=== PATIENT | female | born 1950 | race Caucasian/White ===

== ENCOUNTER 2020-01-22 08:06 | Observation (INO) | payer MEDICARE, OTHER ==
[~2020-01-22] VITALS: Ht 162.6 cm; Wt 86.8 kg
[2020-01-22] MEDS ORDERED: LACTATED RINGERS 1,000 ML IV ONE (08:31)
[2020-01-22 08:43] LABS: BASOPHILS # (AUTO) 0.1 10^3/uL (0.0-0.1); BASOPHILS % (AUTO) 1 % (0-10); EOSINOPHILS # (AUTO) 0.3 10^3/uL (0.0-0.3); EOSINOPHILS % (AUTO) 4 % (0-10); HEMATOCRIT 42 % (35-52); HEMOGLOBIN 13.4 G/DL (11.5-16.0); LYMPHOCYTES # (AUTO) 1.9 X 10^3 (1.0-4.0); LYMPHOCYTES % (AUTO) 26 % (12-44); MEAN CORPUSCULAR HEMOGLOBIN 29 PG (25-34); MEAN CORPUSCULAR HGB CONC 32 G/DL (32-36); MEAN CORPUSCULAR VOLUME 89 FL (80-99); MEAN PLATELET VOLUME 9.1 FL (7.4-10.4); MONOCYTES # (AUTO) 0.6 X 10^3 (0.0-1.0); MONOCYTES % (AUTO) 8 % (0-12); NEUTROPHILS # (AUTO) 4.5 X 10^3 (1.8-7.8); NEUTROPHILS % (AUTO) 61 % (42-75); PLATELET COUNT 371 10^3/uL (130-400); WHITE BLOOD COUNT 7.3 10^3/uL (4.3-11.0)
--- NOTE | 2020-01-22 08:45 | ED Neurological Problem ---
General Chief Complaint: Neuro-Stroke Like Symptoms Stated Complaint: LEFT SIDE NUMBNESS;WEAKNESS Source: patient, family Exam Limitations: no limitations History of Present Illness Date Seen by Provider: Jan 22, 2020 Time Seen by Provider: 08:14 Initial Comments Here with family with concerns of stroke due to left-sided weakness. She reports that she was on a cruise this week and at the end of the cruise (Saturday night) 2 days ago, the boat was rocking quite a bit and she got dizzy. She took some Antivert and woke up the next morning with continued dizziness but then started feeling some left-sided weakness. She completed the cruise and actually was able to get on the flight back home but was having increasing left-sided weakness. Today, she reports difficulty with ambulating without assistance due to left leg weakness and also feels like her speech is slowed. She states that she is thinking okay. She complains of numbness or tingling to the arm and leg on the left. Admits to some facial droop on the left. Does not have significant medical history but has not sought medical care either. States her blood pressure is usually normal when it is checked and it is high today. She arrives with her daughter who reports that the patient is having difficulty walking due to left-sided weakness/discoordination. Patient denies headache, nausea, vomi ting, chest pain or other symptoms. The cruise was out of country from [facility] to [place] and back. This was a five-day cruise. She states that she ate quite a bit during the cruise and has had some loose stools from that but otherwise denies other symptoms. Timing/Duration: 24 hours (up to 36 hours), increasing Severity: mild, moderate Associated Symptoms: No confusion, No fever/chills, No loss of consciousness, No muscle spasms, No nausea/vomiting; paresthesia, slurred speech, trouble walking, weakness Allergies and Home Medications Allergies Coded Allergies: Sulfa (Sulfonamide Antibiotics) (Verified Allergy, Unknown, 01/22/20) Home Medications Aspirin 325 Mg Tablet.dr, 325 MG PO DAILY Prescribed by: LUIS MCCALL on 01/22/201823 Atorvastatin Calcium 20 Mg Tablet, 20 MG PO DAILY Prescribed by: LUIS MCCALL on 01/22/201823 Metoprolol Succinate 50 Mg Tab.er.24h, 50 MG PO DAILY Prescribed by: LUIS MCCALL on 01/22/201823 Rabeprazole Sodium 20 Mg Tablet.dr, 20 MG PO DAILY, (Reported) Patient Home Medication List Home Medication List Reviewed: Yes (Antivert, aspirin and Zyrtec D) Review of Systems Review of Systems Constitutional: see HPI; No chills, No fever Eyes: Denies Blurred Vision, Denies Pain; Glasses Ears, Nose, Mouth, Throat: denies ear pain, denies throat pain Respiratory: No cough, No short of breath Cardiovascular: No chest pain, No edema, No palpitations Gastrointestinal: No abdominal pain, No nausea, No vomiting Genitourinary: no symptoms reported Musculoskeletal: see HPI; No muscle pain; muscle weakness Skin: no symptoms reported Psychiatric/Neurological: See HPI Endocrine: No Symptoms Reported All Other Systems Reviewed Negative Unless Noted: Yes Past Ufjhqty-Tyqkzn-Grzmeo Hx Past Med/Social Hx: Reviewed Nursing Past Med/Soc Hx Patient Social History Alcohol Use: Denies Use Recreational Drug Use: No Smoking Status: Never a Smoker Recent Foreign Travel: Yes Contact w/Someone Who Travel: No Seasonal Allergies Seasonal Allergies: Yes Past Medical History Surgeries: No Respiratory: No Cardiac: No Neurological: No : No Gastrointestinal: No Musculoskeletal: No Endocrine: No HEENT: No Family Medical History Reviewed Nursing Family Hx Heart Disease, Lung Disease, Stroke Physical Exam Vital Signs Vital Signs - First Documented 01/22/20 08:23 Temp 35.3 Pulse 82 Resp 29 B/P (MAP) 176/93 (120) Pulse Ox 97 Capillary Refill : Height, Weight, BMI Height: '" Weight: lbs. oz. kg; BMI Method: General Appearance: WD/WN, no apparent distress HEENT: PERRL/EOMI, pharynx normal Neck: full range of motion, supple Respiratory: lungs clear, normal breath sounds Cardiovascular: regular rate, rhythm, no murmur Peripheral Pulses: 2+ Dorsalis Pedis (R), 2+ Left Dors-Pedis (L), 2+ Radial Pulses (R), 2+ Radial Pulses (L) Gastrointestinal: non tender, soft Back: normal inspection, no CVA tenderness, no vertebral tenderness Extremities: non-tender, no pedal edema, no calf tenderness Neurologic/Psychiatric: alert, oriented x 3 Crainal Nerves: PERRL, abnormal speech (slightly slurred or thick tongue speech), facial asymmetry (mild left facial droop) Coordination/Gait: ABN nose to finger (L) (slowed) Motor/Sensory: no pronator drift, sensory deficit (slightly decreased left upper extremity) Skin: normal color, warm/dry Stroke Onset of Symptoms Date of Onset of Symptoms: Jan 20, 2020 Time of Symptom Onset: 22:00 Onset of Symptoms: No NIH Stroke Scale Assessment Select: Initial Level of Consciousness: 0=Alert (0), Level of Consciousness- Questions: 0=Answers both month/age (0), LOC Commands: 0=Performs both tasks (0), Gaze: Normal (0), Visual [place]: 0=No visual loss (0), Facial Movement (Facial Paresis): 1=Minor paralysis (1), Motor Function-Arms Right: 0=No drift (0), Motor Function-Arms Left: 0=No drift (0), Motor Function-Legs Right: 0=No drift (0), Motor Function-Legs Left: 0=No drift (0), Limb Ataxia: 2=Present in two limbs (2), Sensory: 1=Mild to Moderate loss (1), Best Language: 0=No aphasia (0), Dysarthria: 1=Mild to moderate loss (1), Extinction & Inattention: 0=No abnormality (0), Total: 5 Stroke Thrombolytic Exclusion Age 18 or Over: Yes Acute intenal hemorrhage: No History of CVA: No Uncontrolled Coagulation Defec: No Intracranial Hemorrhage: No Severe Hypertension: No GI or Bleed: No Subarachnoid Hemorrhage: No Intracranial Neoplasm/Aneurysm: No Oral Anticoagulants: No Surgery or Trauma: No Puncture of Non-Compressible V: No Recent CPR: No Diabetic Hemorrhagic Retinopat: No Organ Biopsy: No Recent Obstetric Delivery: No Glucose: No Significant Hepatic Dysfunctio: No NIH Stoke Scale >22: No Bacterial Endocarditis: No Pericarditis: No Improving Symptoms: No Platelets: No TPA Contraindication: Yes (onset 24 hours ago) Progress/Results/Core Measures Results/Orders Lab Results Laboratory Tests Test 01/22/20 08:37 01/22/20 09:06 Range/Units White Blood Count 7.3 4.3-11.0 10^3/uL Red Blood Count 4.71 4.35-5.85 10^6/uL Hemoglobin 13.4 11.5-16.0 G/DL Hematocrit 42 35-52 % Mean Corpuscular Volume 89 80-99 FL Mean Corpuscular Hemoglobin 29 25-34 PG Mean Corpuscular Hemoglobin Concent 32 32-36 G/DL Red Cell Distribution Width 14.0 10.0-14.5 % Platelet Count 371 130-400 10^3/uL Mean Platelet Volume 9.1 7.4-10.4 FL Neutrophils (%) (Auto) 61 42-75 % Lymphocytes (%) (Auto) 26 12-44 % Monocytes (%) (Auto) 8 0-12 % Eosinophils (%) (Auto) 4 0-10 % Basophils (%) (Auto) 1 0-10 % Neutrophils # (Auto) 4.5 1.8-7.8 X 10^3 Lymphocytes # (Auto) 1.9 1.0-4.0 X 10^3 Monocytes # (Auto) 0.6 0.0-1.0 X 10^3 Eosinophils # (Auto) 0.3 0.0-0.3 10^3/uL Basophils # (Auto) 0.1 0.0-0.1 10^3/uL Prothrombin Time 14.2 12.2-14.7 SEC INR Comment 1.1 0.8-1.4 Activated Partial Thromboplast Time 29 24-35 SEC D-Dimer < 0.27 0.00-0.49 UG/ML Sodium Level 140 135-145 MMOL/L Potassium Level 3.8 3.6-5.0 MMOL/L Chloride Level 105 98-107 MMOL/L Carbon Dioxide Level 26 21-32 MMOL/L Anion Gap 9 5-14 MMOL/L Blood Urea Nitrogen 16 7-18 MG/DL Creatinine 0.82 0.60-1.30 MG/DL Estimat Glomerular Filtration Rate > 60 BUN/Creatinine Ratio 20 Glucose Level 132 H 70-105 MG/DL Calcium Level 8.8 8.5-10.1 MG/DL Corrected Calcium 9.0 8.5-10.1 MG/DL Total Bilirubin 0.4 0.1-1.0 MG/DL Aspartate Amino Transf (AST/SGOT) 23 5-34 U/L Alanine Aminotransferase (ALT/SGPT) 24 0-55 U/L Alkaline Phosphatase 116 40-136 U/L Troponin I 0.046 H <0.028 NG/ML Total Protein 6.8 6.4-8.2 GM/DL Albumin 3.8 3.2-4.5 GM/DL Urine Color YELLOW Urine Clarity CLEAR Urine pH 6.5 5-9 Urine Specific [place] 1.010 L 1.016-1.022 Urine Protein NEGATIVE NEGATIVE Urine Glucose (UA) NEGATIVE NEGATIVE Urine Ketones NEGATIVE NEGATIVE Urine Nitrite NEGATIVE NEGATIVE Urine Bilirubin NEGATIVE NEGATIVE Urine Urobilinogen 0.2 < = 1.0 MG/DL Urine Leukocyte Esterase 1+ H NEGATIVE Urine RBC (Auto) NEGATIVE NEGATIVE Urine RBC NONE /HPF Urine WBC 0-2 /HPF Urine Squamous Epithelial Cells NONE /HPF Urine Crystals NONE /LPF Urine Bacteria NEGATIVE /HPF Urine Casts NONE /LPF Urine Mucus NEGATIVE /LPF Urine Culture Indicated NO My Orders Orders - VENICE MORFIN MD Cbc With Automated Diff (01/22/20 08:16) Protime With Inr (01/22/20 08:16) Partial Thromboplastin Time (01/22/20 08:16) Comprehensive Metabolic Panel (01/22/20 08:16) Fibrin Degradation Products (01/22/20 08:16) Troponin I (01/22/20 08:16) Ua Culture If Indicated (01/22/20 08:16) Chest 1 View, Ap/Pa Only (01/22/20 08:16) Ekg Tracing (01/22/20 08:16) Nothing By Mouth (01/22/20 Lunch) Ed Iv/Invasive Line Start (01/22/20 08:16) Ct Head Wo-R/O Stroke (01/22/20 08:16) Intake & Output 06,14,22 (01/22/20 08:16) Monitor-Rhythm Ecg Trace Only (01/22/20 08:16) Dysphagia Screening Tool (01/22/20 08:16) Lactated Ringers (Lr 1000 Ml Iv Solution (01/22/20 08:31) Ct Angio Head/Neck (01/22/20 09:17) Iohexol Injection (Omnipaque 350 Mg/Ml 1 (01/22/20 09:30) Received Contrast (Hold Metformin- Contr (01/22/20 09:30) Sodium Chloride Flush (Catheter Flush Sy (01/22/20 09:30) Ns (Ivpb) (Sodium Chloride 0.9% Ivpb Bag (01/22/20 09:30) Metoprolol Succinate (Xl) Tab (Toprol Xl (01/22/20 10:15) Medications Given in ED Vital Signs/I&O 01/22/20 08:23 Temp 35.3 Pulse 82 Resp 29 B/P (MAP) 176/93 (120) Pulse Ox 97 Progress Progress Note : Progress Note Seen and evaluated. IV, labs, EKG, chest x-ray, CT head, UA and LR 1 L bolus or dered. Stroke scale is 5. Patient is well outside of TPA window as symptoms started 24-36 hours ago. She did take an aspirin at home. Anticipate CT angiogram of the head and neck. Blood pressure is elevated at this point but we will allow that to be currently pending CT head and rule out bleed. Monitor patient. 25: CT angiogram head and neck ordered. Initial CT results reviewed. I did discuss with the radiologist. We will get CT angiogram now and anticipate or we'll try to get MRI later today. Monitor patient. 1000: I did discuss the case with Dr. Mccall and she accepts patient for admission with request for Dr. Barriga on consult. Toprol-XL 50 mg by mouth given to decrease blood pressure some without going to far given that this may be hypertensive event. 1020: I did discuss the case with Dr. Barriga and he accepts patient in consult. Agrees with Toprol and will continue to monitor blood pressure. Troponin slightly elevation may only be related to blood pressure concerns and he will continue to manage on that. Initially placed observation status as patient will not want to stay longer than she has to. We will try for MRI today if possible. 2-D echocardiogram ordered. All findings concerns discussed with patient and family who agree with plan. Initial ECG Impression Date: Jan 22, 2020 Initial ECG Impression Time: 08:16 Initial ECG Rate: 79 Initial ECG Rhythm: Normal Sinus Initial ECG Intervals: Normal Initial ECG Impression: Normal Initial ECG Comparisson: No Previous ECG Available Comment Sinus rhythm with borderline prolonged QT interval. No evidence of ST elevation RI. No previous available for comparison. Interpreted by me. Diagnostic Imaging Diagonstic Imaging: CT Plain Films/CT/US/NM/MRI: head Comments NAME: ARIANNAMARICRUZ [facility] REC#: [id number] PT STATUS: REG ER : 1950 PHYSICIAN: VENICE MORFIN MD ADMIT DATE: 01/22/20/ER Draft Date of Exam:01/22/20 CT HEAD WO-R/O STROKE PROCEDURE: CT head wo r/o stroke. TECHNIQUE: Multiple contiguous axial images were obtained through the brain without the use of intravenous contrast. Auto Exposure Controls were utilized during the CT exam to meet ALARA standards for radiation dose reduction. INDICATION: Dizziness and left-sided weakness. COMPARISON: Correlation is made with a prior head CT from 06/11/2013. FINDINGS: The ventricular size and sulcal pattern are normal. There is some mild periventricular white matter changes, likely owing to chronic microvascular ischemia. There appears to be some white matter changes in the moser radiata bilaterally. A small CSF density noted in the right centrum semiovale is noted which may represent an old lacunar infarct. This was not present on the exam from 2012. There is no midline shift. No acute intra-axial or extra-axial hemorrhage is detected. Cisterns are patent. Visualized paranasal sinuses are clear. IMPRESSION: Chronic changes, as described. No acute intracranial process is detected. If symptoms persist, MRI of the brain may be useful for further evaluation. Dictated on workstation # [id number] Dict: 01/22/20900 Trans: 01/22/20905 [facility] [id number] Interpreted by: FREIDA GHOSH MD Electronically signed by: Sandy Imaging: Xray Plain Films/CT/US/NM/MRI: chest Comments NAME: MARICRUZ KELLER [facility] REC#: [id number] PT STATUS: REG ER : 1950 PHYSICIAN: VENICE MORFIN MD ADMIT DATE: 01/22/20/ER Draft Date of Exam:01/22/20 CHEST 1 VIEW, AP/PA ONLY INDICATION: Left-sided numbness and weakness. FINDINGS: The lungs are clear. The heart and vessels are normal. No failure, effusion or pneumothorax. IMPRESSION: No acute appearing abnormality. Dictated on workstation # [id number] Dict: 01/22/20857 Trans: 01/22/20899 [facility] [id number] Interpreted by: KELSIE OSPINA Electronically signed by: [place]loe Imaging: CT Plain Films/CT/US/NM/MRI: other Comments NAME: MARICRUZ KELLER [facility] REC#: [id number] PT STATUS: REG ER : 1950 PHYSICIAN: VENICE MORFIN MD ADMIT DATE: 01/22/20/ER Draft Date of Exam:01/22/20 CT ANGIO HEAD/NECK PROCEDURE: CT angiography of the head and CT angiography of the neck with and without contrast. TECHNIQUE: Contiguous noncontrast images were obtained from the skull base through the vertex. After intravenous contrast administration, helical CT angiography of the neck was performed. Source data was reformatted into 3D MIP projections. Delayed post contrast acquisition was also obtained. Auto Exposure Controls were utilized during the CT exam to meet ALARA standards for radiation dose reduction. INDICATION: Left-sided weakness. FINDINGS: CT angiographic portion of the study shows a three-vessel branching pattern to the aortic arch. Both common carotid arteries appear to be patent. The carotid bifurcations are unremarkable. Both internal carotid arteries are patent. There is some calcified plaque in the carotid siphons bilaterally. Bilateral middle cerebral arteries appear to be widely patent. No large branch occlusion or thromboembolism is identified. Bilateral anterior cerebral arteries appear to be patent. The basilar artery is patent. Bilateral posterior cerebral arteries are patent. IMPRESSION: Unremarkable CT angiogram of the head and neck without evidence of large branch occlusion or thromboembolism. There is plaquing in the carotid siphons bilaterally but no high-grade stenosis is identified. Dictated on workstation # [id number] Dict: 01/22/20 0946 Trans: 01/22/20 0958 [facility] [phone] Interpreted by: FREIDA GHOSH MD Electronically signed by: Departure Communication (Admissions) Time/Spoke to Admitting Phy: 10:00 Time/Spoke to Consulting Phy: 10:20 Impression Primary Impression: Cerebrovascular accident (CVA) with involvement of left side of body Additional Impressions: Uncontrolled hypertension Elevated troponin Disposition: ADMITTED INPATIENT Condition: Stable Admissions Decision to Admit Reason: Admit from ER (General) Decision to Admit/Date: Jan 22, 2020 Time/Decision to Admit Time: 10:00 Departure-Patient Inst. Referrals: LUIS MCCALL DO (PCP/Family) Primary Care Physician Scripts Atorvastatin Calcium (Atorvastatin Calcium) 20 Mg Tablet 20 MG PO DAILY, #30 TAB 0 Refills Prov: LUIS MCCALL DO 01/22/20 Metoprolol Succinate (Toprol Xl) 50 Mg Tab.er.24h 50 MG PO DAILY, #30 TAB 3 Refills Prov: LUIS MCCALL DO 01/22/20 Aspirin (Aspirin EC) 325 Mg Tablet.dr 325 MG PO DAILY, #90 TAB 0 Refills Prov: LUIS MCCALL DO 01/22/20 VENICE MORFIN MD Jan 22, 2020 08:45
[2020-01-22] MEDS ORDERED: NF-ACI30T PO (08:57)
[2020-01-22] MEDS ORDERED: CETI1TAB61 PO (08:57)
[2020-01-22] MEDS ORDERED: ASPI-586 PO (08:58)
--- NOTE | 2020-01-22 09:00 | Diagnostic Imaging Report ---
INDICATION: Left-sided numbness and weakness. FINDINGS: The lungs are clear. The heart and vessels are normal. No failure, effusion or pneumothorax. IMPRESSION: No acute appearing abnormality. Dictated by: Dictated on workstation # [id number]
[2020-01-22 09:07] LABS: ALANINE AMINOTRANSFERASE 24 U/L (0-55); ALBUMIN 3.8 GM/DL (3.2-4.5); ALKALINE PHOSPHATASE 116 U/L (40-136); BILIRUBIN,TOTAL 0.4 MG/DL (0.1-1.0); BUN/CREATININE RATIO 20; CALCIUM 8.8 MG/DL (8.5-10.1); CARBON DIOXIDE 26 MMOL/L (21-32); CHLORIDE 105 MMOL/L (98-107); CREATININE SERUM 0.82 MG/DL (0.60-1.30); GFR ESTIMATED > 60; GLUCOSE 132 MG/DL (70-105); POTASSIUM 3.8 MMOL/L (3.6-5.0); SODIUM 140 MMOL/L (135-145); TOTAL PROTEIN 6.8 GM/DL (6.4-8.2)
--- NOTE | 2020-01-22 09:07 | Diagnostic Imaging Report ---
PROCEDURE: CT head wo r/o stroke. TECHNIQUE: Multiple contiguous axial images were obtained through the brain without the use of intravenous contrast. Auto Exposure Controls were utilized during the CT exam to meet ALARA standards for radiation dose reduction. INDICATION: Dizziness and left-sided weakness. COMPARISON: Correlation is made with a prior head CT from 06/11/2013. FINDINGS: The ventricular size and sulcal pattern are normal. There is some mild periventricular white matter changes, likely owing to chronic microvascular ischemia. There appears to be some white matter changes in the moser radiata bilaterally. A small CSF density noted in the right centrum semiovale is noted which may represent an old lacunar infarct. This was not present on the exam from 2013. There is no midline shift. No acute intra-axial or extra-axial hemorrhage is detected. Cisterns are patent. Visualized paranasal sinuses are clear. IMPRESSION: Chronic changes, as described. No acute intracranial process is detected. If symptoms persist, MRI of the brain may be useful for further evaluation. Dictated by: Dictated on workstation # [id number]
[2020-01-22 09:16] LABS: BILIRUBIN,URINE NEGATIVE (NEGATIVE); CLARITY,URINE CLEAR; COLOR,URINE YELLOW; GLUCOSE, URINE (UA) NEGATIVE (NEGATIVE); KETONES,URINE NEGATIVE (NEGATIVE); LEUKOCYTE ESTERASE ,URINE 1+ (NEGATIVE); NITRITE,URINE NEGATIVE (NEGATIVE); PH,URINE 6.5 (5-9); PROTEIN,URINE NEGATIVE (NEGATIVE)
[2020-01-22 09:24] LABS: BACTERIA,URINE NEGATIVE /HPF; WBC,URINE 0-2 /HPF
[2020-01-22] MEDS ORDERED: NS 100 ML (IVPB) BAG IV ONE (09:30)
[2020-01-22] MEDS ORDERED: CATHETER FLUSH 10 ML SYR IV PRN (09:30)
[2020-01-22] MEDS ORDERED: IOHEXOL 350 MG/ML 100 ML (OMNIPAQUE 350) VIAL IV ONE (09:30)
[2020-01-22] MEDS ORDERED: HOLD METFORMIN - RECEIVED CONTRAST 20 ML VIAL IV SCH (09:30)
[2020-01-22 09:32] LABS: FIBRIN DEGRADATION PRODUCTS < 0.27 UG/ML (0.00-0.49); INR 1.1 (0.8-1.4); PARTIAL THROMBOPLASTIN TIME 29 SEC (24-35); PROTHROMBIN TIME PATIENT 14.2 SEC (12.2-14.7)
--- NOTE | 2020-01-22 09:59 | Diagnostic Imaging Report ---
PROCEDURE: CT angiography of the head and CT angiography of the neck with and without contrast. TECHNIQUE: Contiguous noncontrast images were obtained from the skull base through the vertex. After intravenous contrast administration, helical CT angiography of the neck was performed. Source data was reformatted into 3D MIP projections. Delayed post contrast acquisition was also obtained. Auto Exposure Controls were utilized during the CT exam to meet ALARA standards for radiation dose reduction. INDICATION: Left-sided weakness. FINDINGS: CT angiographic portion of the study shows a three-vessel branching pattern to the aortic arch. Both common carotid arteries appear to be patent. The carotid bifurcations are unremarkable. Both internal carotid arteries are patent. There is some calcified plaque in the carotid siphons bilaterally. Bilateral middle cerebral arteries appear to be widely patent. No large branch occlusion or thromboembolism is identified. Bilateral anterior cerebral arteries appear to be patent. The basilar artery is patent. Bilateral posterior cerebral arteries are patent. IMPRESSION: Unremarkable CT angiogram of the head and neck without evidence of large branch occlusion or thromboembolism. There is plaquing in the carotid siphons bilaterally but no high-grade stenosis is identified. Dictated by: Dictated on workstation # [id number]
[2020-01-22] MEDS ORDERED: meTOproloL SUCCINATE 50 MG (TOPROL XL) TAB PO SCH (10:15)
[2020-01-22] MEDS ORDERED: ASPIRIN E.C. 325 MG (ECOTRIN) TABLET PO SCH (11:16)
[2020-01-22 11:20] VITALS: BP 177/104
[2020-01-22] MEDS ORDERED: ACETAMINOPHEN 325 MG TABLET PO PRN (11:30)
--- NOTE | 2020-01-22 11:40 | NUR ---
MARICRUZ KELLER Kristin admitted to room 411-1, with an admitting diagnosis of cva, on 01/22/20 from ED via wheelchair, accompanied by staff and daughter. MARICRUZ KELLER introduced to surroundings, call light, bed controls, phone, TV, temperature control, lights, meal times, smoking policy, visitor policy, side rail policy, bathrooms and showers. Patient Rights given to patient in the handbook. MARICRUZ KELLER verbalizes understanding that [facility] is not responsible for the loss or damage to any personal effects or valuables that are kept in the patients posession during their hospitalization. The following Patient Care Plans were discussed with the patient: Discharge Planning, dehydration, pain management, and medications. MARICRUZ KELLER verbalizes understanding of Interdisciplinary Patient Education. Patient and/or family were informed about the Rapid Response Team and its purpose.
[2020-01-22 12:00] VITALS: BP 177/104
--- NOTE | 2020-01-22 13:12 | History & Physical ---
EVELYN ARAGON MED STUDENT 01/22/20 1311: HPI History of Present Illness: CC: dizziness, L sided weakness & numbness Ms. Winter is a 58yo who reports that she was recently in [facility] for vacation and began experiencing dizziness while she was on a boat on Saturday evening. She initially thought it was seasickness and took Antevert. This did not relieve her dizziness. She also described having weakness and numbness on her L side. While walking, she felt like one leg was shorter than the other, and she felt like she needed to hold on to something when she was walking. She noticed a sudden change in her speech; it has slowed and she says she is normally a fast talker. Friends noticed a change in her smile, but she has not noticed this. Symptoms continued through while flying home; she took some more Antevert. She did not feel well enough to drive home from [place], and called for a ride. Her dizziness did not improve until she was given some blood pressure medication in the ED here. Since being given the blood pressure medication, she thinks her weakness and numbness have improved. She denies having a headache or changes with vision during this time. She thinks that walking a lot and dehydration may have contributed to her symptoms while on vacation. She reports having a TIA ~2y ago but denies HTN. Source: patient, family (Middle daughter present during interview; notes change in mother's smile) Exam Limitations: no limitations Date seen by provider: Jan 22, 2020 Time Seen by Provider: 12:15 Attending Physician Anuradha Beaulieu MD PCP Luis Mccall DO Consult Date of Admission Jan 22, 2020 at 10:31 Home Medications Home Medications Reviewed patient Home Medication Reconciliation performed by pharmacy medication reconciliations heavy equipment technician and/or nursing. Patients Allergies have been reviewed. Allergies Coded Allergies: Sulfa (Sulfonamide Antibiotics) (Verified Allergy, Unknown, 01/22/20) [id number]-[id number] Hx Patient Social History Employed/Student: employed Alcohol Use: Denies Use Recreational Drug Use: No Smoking Status: Never a Smoker 2nd Hand Smoke Exposure: Yes Recent Foreign Travel: Yes ([employer] and [employer] [place]) Contact w/other who traveled: Yes Recent Hopitalizations: No Recent Infectious Disease Expo: No Past Medical History TIA ~2y ago Family Medical History Significant Family History: Heart Disease, Lung Disease, Stroke Review of Systems ([facility]) Constitutional: No chills; dizziness; No fever; weakness EENTM: No hearing loss, No blurred vision, No double vision, No throat pain Respiratory: No cough, No short of breath Cardiovascular: No chest pain, No palpitations, No syncope Gastrointestinal: No abdominal pain, No constipation, No diarrhea Musculoskeletal: No joint pain, No muscle pain, No neck pain Skin: no symptoms reported Psychiatric/Neurological: Denies Headache Physical Exam-([facility]) Physical Exam Vital Signs VS - Last 72 Hours, by Label 01/22/20 01/22/20 01/22/20 01/22/20 08:23 11:14 11:20 12:00 Temp 35.3 36.4 36.4 Pulse 82 63 65 65 Resp 29 14 20 20 B/P (MAP) 176/93 (120) 197/106 177/104 177/104 (128) Pulse Ox 97 100 97 97 O2 Delivery Room Air Room Air Capillary Refill : Less Than 3 Seconds General Appearance: WD/WN, no apparent distress Eyes: Bilateral Eye PERRL, Bilateral Eye EOMI HEENT: PERRL/EOMI; No photophobia Neck: normal inspection Respiratory: normal breath sounds Cardiovascular: regular rate, rhythm Gastrointestinal: normal bowel sounds, non tender, soft Extremities: pedal edema (Trace, R>L) Neurologic/Psychiatric: alert, normal mood/affect, oriented x 3, abnormal leak patcher II-XII (Mildly asymmetric smile); No aphasia; facial droop (mild L sided ), motor weakness (4/5 for strength on L hip flexion, L upper extremity); No sensory deficit; other (Difficulty getting pt relaxed enough for reflexes) Skin: normal color, warm/dry Assessment/Plan Assessment/Plan Admission Dx #Possible Stroke vs Hypertensive Crisis - Symptom onset Saturday (>4.5h ago) - Head CT w/o showed chronic changes; no acute process - CTA completed: Unremarkable CT angiogram of the head and neck without evidence of large branch occlusion or thromboembolism. There is plaquing in the carotid siphons bilaterally but no high-grade stenosis is identified. - Unable to complete MRI at this time - Echo ordered; cardiology consulted - BP found to be elevated to 170s-190s/90s-100s - Given metoprolol 50mg - Avoid decreasing BP too rapidly - Start secondary prevention; given ASA 325mg - Lipid panel ordered; start statin if indicated - Troponin I minimally elevated (0.046); EKG not concerning Clinical Quality Measures DVT/VTE Risk/Contraindication: Risk Factor Score Per Nursin RFS Level Per Nursing on Admit: 3=High Stroke: Date of last known well: Jan 20, 2020 Time of last known well: 22:00 LUIS MCCALL DO 01/22/20 1705: Home Medications Allergies Coded Allergies: Sulfa (Sulfonamide Antibiotics) (Verified Allergy, Unknown, 01/22/20) Assessment/Plan Assessment/Plan Admission Dx Attending impression: 1. acute CVA w/ left sided weakness - suspect new lacunar infarct 2. elevated BP likely in part due to #1 Admission Status: Observation Supervisory-Addendum Brief Verification & Attestation Participated in pt care: history, physical Personally performed: exam, history, supervision of care Care discussed with: other (patient) Procedures: n/a Patient had history of facial drooping and mild L arm weakness in 2012. Symptoms resolved within [address] of the head at that time was negative. Pt did not have MRI done for follow-up. She started an ASA at that time and has taken it consistently since. She reported she forgot to take the ASA on her recent trip and was subsequently off the ASA for 7 days and at the time of the onset of her symptoms. CT head shows an old lacunar infarct without acute changes. CT findings correlate with symptoms from 2013. Echo done - report pending. Patient seen by Dr. Barriga. PT/OT evaluations done. Patient is wanting to be discharged. MRI will have to be done as OP as no availability currently. Will need to continue ASA and recommend starting statin therapy. EVELYN ARAGON MED STUDENT Jan 22, 2020 13:11 LUIS MCCALL DO Jan 22, 2020 17:05
--- NOTE | 2020-01-22 14:45 | Physical Therapy Evaluation ---
PT Evaluation-General Medical Diagnosis Admission Date Jan 22, 2020 at 10:31 Medical Diagnosis: CVA/left sided weakness/elevated troponin/HTN Onset Date: Jan 20, 2020 Therapy Diagnosis Therapy Diagnosis: debility/left sided weakness Precautions Precautions/Isolations: Standard Precautions Weight Bear Status Right Lower Extremity: Right Weight Bearing/Tolerated Left Lower Extremity: Left Weight Bearing/Tolerated Referral Physician: Cal Reason for Referral: Evaluation/Treatment Medical History Additional Medical History unremarkable history prior Current History symptoms began during a cruise with dizziness and left sided weakness Reviewed History: Yes Social History Home: Single Level Current Living Status: Alone Prior Prior Level of Function SCALE: Activities may be completed with or without assistive devices. 1-Qegnmlbyov-gqpgcsv completes the activity by him/herself with no assistance from a helper. 5-Set-up or Clean-up Assistance-helper sets up or cleans up; patient completes activity. [place] assists only prior to or following the activity. 4-Supervision or Touching Assistance-helper provides verbal cues and/or touching/steadying and/or contact guard assistance as patient completes activity. Assistance may be provided throughout the activity or intermittently. 3-Partial/Moderate Assistance-helper does LESS THAN HALF the effort. [place] lifts, holds or supports trunk or limbs, but provides less than half the effort. 2-Substantial/Maximal Assistance-helper does MORE THAN HALF the effort. [place] lifts or holds trunk or limbs and provides more than half the effort. 7-Wwysaunpu-ftffie does ALL the effort. Patient does none of the effort to complete the activity. Or, the assistance of 2 or more helpers is required for the patient to complete the activity. If activity was not attempted, code reason: 7-Patient Refused. 9-Not Applicable-not attempted and the patient did not perform the activity before the current illness, exacerbation or injury. 10-Not Attempted due to Environmental Limitations-(lack of equipment, weather restraints, etc.). 88-Not Attempted due to Medical Conditions or Safety Concerns. Bed Mobility: 6 Transfers (B,C,W/C): 6 Gait: 6 Stairs: 6 Indoor Mobility (Ambulation): Independent Stairs: Independent Prior Devices Use: None PT Evaluation-Current Subjective Patient agrees to PT. She reports she is feeling much better since blood pressure medication was issued. Pain Numeric Pain Scale: 0-No Pain Location: No Pain Reported Objective Patient Orientation: Normal For Age ROM/Strength ROM Lower Extremities bilateral LE WFL Strength Lower Extremities 4-/5 grossly left LE/4/5 right LE grossly Integumentary/Posture Integumentary refer to nursing notes Bowel Incontinence: No Bladder Incontinence: No Posture WFL Neuromuscular (Tone, Coordination, Reflexes) diminished coordination/proprioception Sensory Vision: Wears Glasses Sensation Right Lower Extremit: Intact Sensation Left Lower Extremity: Intact Transfers Roll Left to Right (QC): 6 Sit to Lying (QC): 6 Lying to Sitting/Side of Bed(Q: 6 Sit to Stand (QC): 5 Gait Does the Patient Walk?: Yes Mode of Locomotion: Walk Anticipated Mode of Locomotion: Walk Walk 10 feet (QC): 4 Walk 50 ft with 2 Turns(QC): 4 Walk 150 ft (QC): 4 Distance: 150' Gait 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 female, will be seen short term by skilled PT to address functional strength and mobility to improve current LOF to safely return to home and work at maximum LOB. Rehab Potential: Fair PT Dealership General Manager Goals Dealership General Manager Goals PT Long-Term Goals Time Frame: Jan 29, 2020 Roll Left & Right (QC): 6 Sit to Lying (QC): 6 Lying-Sitting on Side/Bed(QC): 6 Sit to Stand (QC): 6 Chair/Yzy-qd-Gzsec Xfer(QC): 6 Toilet Transfer (QC): 6 Car Transfer (QC): 6 Does the Patient Walk: Yes Walk 10 feet (QC): 6 Walk 50ft with 2 Turns (QC): 6 Walk 150 ft (QC): 6 PT Plan Problem List Problem List: Activity Tolerance, Balance, Gait Treatment/Plan Treatment Plan: Continue Plan of Care Treatment Plan: Education, Functional Activity Hoa, Functional Strength, Gait, Safety, Therapeutic Exercise, Transfers Treatment Duration: Jan 29, 2020 Frequency: 5 times per week Estimated Hrs Per Day: .25 hour per day Patient and/or Family Agrees t: Yes Time/GCodes Time In: 1425 Time Out: 1435 Total Billed Treatment Time: 10 Total Billed Treatment 1 visit EVModC 10 min NADER STOLL PT Jan 22, 2020 14:45
--- NOTE | 2020-01-22 15:13 | Occupational Therapy Eval ---
OT Evaluation-General/PLF Medical Diagnosis Admission Date Jan 22, 2020 at 10:31 Medical Diagnosis: CVA/left sided weakness/elevated troponin/HTN Onset Date: Jan 20, 2020 Therapy Diagnosis Therapy Diagnosis: weakness Precautions Precautions/Isolations: Standard Precautions Referral Physician: Cal Medical History Current History Pt presented to hospital with c/o dizziness and left side weakness. Reviewed History: Yes Social History Home: Single Level Current Living Status: Alone ADL-Prior Level of Function SCALE: Activities may be completed with or without assistive devices. 3-Tgxzpxszlc-phdafga completes the activity by him/herself with no assistance from a helper. 5-Set-up or Clean-up Assistance-helper sets up or cleans up; patient completes activity. [place] assists only prior to or following the activity. 4-Supervision or Touching Assistance-helper provides verbal cues and/or touching/steadying and/or contact guard assistance as patient completes activity. Assistance may be provided throughout the activity or intermittently. 3-Partial/Moderate Assistance-helper does LESS THAN HALF the effort. [place] lifts, holds or supports trunk or limbs, but provides less than half the effort. 2-Substantial/Maximal Assistance-helper does MORE THAN HALF the effort. [place] lifts or holds trunk or limbs and provides more than half the effort. 4-Zjxotyxyv-gsxuhk does ALL the effort. Patient does none of the effort to complete the activity. Or, the assistance of 2 or more helpers is required for the patient to complete the activity. If activity was not attempted, code reason: 7-Patient Refused. 9-Not Applicable-not attempted and the patient did not perform the activity before the current illness, exacerbation or injury. 10-Not Attempted due to Environmental Limitations-(lack of equipment, weather restraints, etc.). 88-Not Attempted due to Medical Conditions or Safety Concerns. ADL PLOF Comments Pt reports being independent with self care and mobility. Does not use any assistive devices. 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 No reports of pain. Pt states she is starting to feel better. Mental Status/Objective Patient Orientation: Person, Place, Situation Current Glasses/Contacts: Yes Hand Dominance: Right Upper Extremity ROM Grossly WFL Upper Extremity Strength Right UE Grossly WFL Left UE grossly 4/5 ADL-Treatment ADL-Current Pt supine to sit with increased time. Pt sat EOB with good balance during UE assessment. Pt demonstrated ability to doff/don socks while seated EOB. Sit to stand without assist. Pt had mild LOB during transfer, requiring CGA to correct. Pt returned to bed with needs met. Eating (QC): 6 (Pt reports feeding self and managing containers without assist) Oral Hygiene (QC): 7 (Pt declined to complete at this time.) On/Off Footwear (QC): 5 OT Nursing Home Goals Seed Tester Goals Time Frame: Jan 29, 2020 Oral Hygiene (QC): 6 Toileting Hygiene (QC): 6 Shower/Bathe Self (QC): 6 Upper Body Dressing (QC): 6 Lower Body Dressing (QC): 6 On/Off Footwear (QC): 6 Additional Goals: 2-Verbalize Understanding, 3-ImproveStrength/Hoa 1=Demonstrate adherence to instructed precautions during ADL tasks. 2=Patient will verbalize/demonstrate understanding of assistive devices/modifications for ADL. 3=Patient will improve strength/tolerance for activity to enable patient to perform ADL's. OT Education/Plan Problem List/Assessment Assessment: Decreased UE Strength, Dependent Transfers, Impaired Self-Care Skills Pt demonstrates decreased strength and mobility, impacting ability to perform functional tasks. Pt to benefit from skilled OT for ADL training, transfers, and strengthening to increase level of function and allow safe discharge. Discharge Recommendations Plan/Recommendations: Continue POC Treatment Plan/Plan of Care Treatment,Training & Education: Yes Patient would benefit from OT for education, treatment and training to promote independence in ADL's, mobility, safety and/or upper extremity function for ADL's. Plan of Care: ADL Retraining, Functional Mobility, UE Funct Exercise/Act Treatment Duration: Jan 29, 2020 Frequency: 5 times per week Estimated Hrs Per Day: .25 hour per day Rehab Potential: Good Time/GCodes Start Time: 14:10 Stop Time: 14:25 Total Time Billed (hr/min): 15 Billed Treatment Time 1 visit, TIMOTEO(15minutes) TRES NEVILLE OT Jan 22, 2020 15:13
--- NOTE | 2020-01-22 15:58 | NUR ---
SPOKE WITH THE PT- NURSE HAD ALREADY PUT ITEMS ON THE MED REC. WHEN I TRIED TO CALL [facility] IN [place] THE CALL WOULD NOT GO THRU. I TRIED FOR OVER 30 MINUTES AND EVEN CALLED [facility] AND I STILL COULD NOT GET AN ANSWER. I HAVE COMPLETED [facility] REC TO THE BEST OF MY ABILITY AT THIS TIME.
[2020-01-22 16:00] VITALS: BP 199/99
[2020-01-22 16:20] VITALS: BP 188/80
--- NOTE | 2020-01-22 16:41 | Consultation-Cardiology ---
HPI-Cardiology Cardiology Consultation: Date of Consultation 01/22/20 Time Seen by a Provider: 15:40 Date of Admission Attending Physician Anuradha Beaulieu MD Admitting Physician Christy Mccall DO Consulting Physician CAROLYNE HARO MD, MA, FACP, FACC, FSCAI, CCDS HPI: Chief Complaint: Reason for consultation: Elevated troponin HPI 69 yo woman admitted with dizziness, gait impairment, mild L-sided weakness to Dr Mccall this morning. Symptoms started 24 hours or more prior to arrival. She thinks symptoms are improving No cp or palp or syncope or shortness of breath or leg swelling Recalls having had similar weakness in 2012; was diagnosed with TIA then Review of Systems-Cardiology Review of Systems Constitutional: malaise, tiredness; No weight loss, No weight gain Eyes: No vision change Ears/Nose/Throat: No ear discharge, No nasal drainage, No recent hearing loss Respiratory: As described under HPI Cardiovascular: As described under HPI Gastrointestinal: No constipation, No diarrhea, No nausea, No vomiting Genitourinary: No dysuria, No hematuria Musculoskeletal: No back pain, No joint pain Skin: No rash, No ulcerations Psychiatric/Neurological: As described under HPI Hematologic: No bleeding abnormalities All Other Systems Reviewed Negative Unless Noted: Yes HWK-Buxosq-Ezfjfk Hx Patient Social History Employed/Student: employed Alcohol Use: Denies Use Recreational Drug Use: No Smoking Status: Never a Smoker 2nd Hand Smoke Exposure: Yes Recent Foreign Travel: Yes ([employer] and [place]) Recent Infectious Disease Expo: No Past Medical History PMH As described under Assessment. Family Medical History Family Medical History: Report h/o CVA in mother and grandmother Allergies and Home Medications Allergies Coded Allergies: Sulfa (Sulfonamide Antibiotics) (Verified Allergy, Unknown, 01/22/20) Home Medications Aspirin 81 Mg Tablet.dr, 81 MG PO DAILY, (Reported) Cetirizine HCl/Pseudoephedrine 1 Each Tab.er.12h, 1 EACH PO DAILY, (Reported) Rabeprazole Sodium 20 Mg Tablet.dr, 20 MG PO DAILY, (Reported) Patient Home Medication List Home Medication List Reviewed: Yes Physical Exam-Cardiology Physical Exam Vital Signs/I&O 01/22/20 01/22/20 01/22/20 01/22/20 08:23 11:14 11:20 11:30 Temp 35.3 36.4 Pulse 82 63 65 Resp 29 14 20 B/P (MAP) 176/93 (120) 197/106 177/104 Pulse Ox 97 100 97 O2 Delivery Room Air Room Air 01/22/20 01/22/20 01/22/20 11:53 12:00 13:02 Temp 36.4 Pulse 63 65 59 Resp 20 B/P (MAP) 177/104 (128) Pulse Ox 97 O2 Delivery Room Air Capillary Refill : Less Than 3 Seconds Constitutional: AAO x 3, well-developed, well-nourished HEENT: EOMI, hearing is well preserved; No xanthelasmas are seen Neck: No carotid bruit; carotid pulses are 2 + bilaterally, with good upstrokes Respiratory: No accessory muscle use; other (good, bilateral air entry) Cardiovascular: regular rate-rhythm, S1 and S2, systolic murmur (faint CY at card base) Gastrointestinal: No tender; soft; No guarding, No rebound, No audible bowel sounds Extremities: No clubbing, No cyanosis, No significant edema Neurologic/Psychiatric: oriented x 3, other (moves all limbs equally; minimal weakness of the angle of the mouth on the L) Skin: No rash on exposed areas, No ulcerations on exposed areas Data Review Labs Laboratory Tests 01/22/20 08:37: White Blood Count 7.3, Red Blood Count 4.71, Hemoglobin 13.4, Hematocrit 42, Mean Corpuscular Volume 89, Mean Corpuscular Hemoglobin 29, Mean Corpuscular Hemoglobin Concent 32, Red Cell Distribution Width 14.0, Platelet Count 371, Mean Platelet Volume 9.1, Neutrophils (%) (Auto) 61, Lymphocytes (%) (Auto) 26, Monocytes (%) (Auto) 8, Eosinophils (%) (Auto) 4, Basophils (%) (Auto) 1, Neutrophils # (Auto) 4.5, Lymphocytes # (Auto) 1.9, Monocytes # (Auto) 0.6, Eosinophils # (Auto) 0.3, Basophils # (Auto) 0.1, Prothrombin Time 14.2, INR Comment 1.1, Activated Partial Thromboplast Time 29, D-Dimer < 0.27, Sodium Level 140, Potassium Level 3.8, Chloride Level 105, Carbon Dioxide Level 26, Anion Gap 9, Blood Urea Nitrogen 16, Creatinine 0.82, Estimat Glomerular Filtration Rate > 60, BUN/Creatinine Ratio 20, Glucose Level 132H, Calcium Level 8.8, Corrected Calcium 9.0, Total Bilirubin 0.4, Aspartate Amino Transf (AST/SGOT) 23, Alanine Aminotransferase (ALT/SGPT) 24, Alkaline Phosphatase 116, Troponin I 0.046H, Total Protein 6.8, Albumin 3.8 01/22/20 09:06: Urine Color YELLOW, Urine Clarity CLEAR, Urine pH 6.5, Urine Specific [place] 1.010L, Urine Protein NEGATIVE, Urine Glucose (UA) NEGATIVE, Urine Ketones NEGATIVE, Urine Nitrite NEGATIVE, Urine Bilirubin NEGATIVE, Urine Urobilinogen 0.2, Urine Leukocyte Esterase 1+H, Urine RBC (Auto) NEGATIVE, Urine RBC NONE, Urine WBC 0-2, Urine Squamous Epithelial Cells NONE, Urine Crystals NONE, Urine Bacteria NEGATIVE, Urine Casts NONE, Urine Mucus NEGATIVE, Urine Culture Indicated NO Laboratory Tests 01/22/20 08:37 A/P-Cardiology Assessment/Admission Diagnosis TIA vs CVA, being managed by Dr Mccall Uncontrolled hypertension Echo 01/22/20: mild conc LVH, LVEF 60-65%, mild LA enlargement, mild MR, RVSP [address] angio of the head and neck on 01/22/20: no evidence of large branch occlusion or thromboembolism. There is plaquing in the carotid siphons bilaterally but no high-grade stenosis is identified Discussion and Recomendations * Management of CVA is with Dr Mccall * I spoke with Dr Vega of the stroke team who admitted her this am. 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 This can be done as outpt * I discussed her CV issues with her in detail and answered questions Clinical Quality Measures DVT/VTE Risk/Contraindication: Risk Factor Score Per Nursin RFS Level Per Nursing on Admit: 3=High Stroke: Date of last known well: Jan 20, 2020 Time of last known well: 22:00 CAROLYNE HARO MD [facility] Jan 22, 2020 16:41
[2020-01-22] MEDS ORDERED: ASPI325T32 PO (18:24)
[2020-01-22] MEDS ORDERED: ATOR20TA66 PO (18:24)
[2020-01-22] MEDS ORDERED: METO-352 PO (18:24)
--- NOTE | 2020-01-22 18:37 | Discharge Summary ---
Discharge Summary Hospital Course Hospital Course Date of Admission: Jan 22, 2020 at 10:31 Admission Diagnosis : 1. acute CVA w/ left sided weakness 2. elevated blood pressure Family Physician/Provider: Luis Segura DO Date of Discharge: 01/22/20 Discharge Diagnosis: same Hospital Course: Patient was admitted for observation. Given ASA 325mg daily and Toprol XL 50mg daily to gradually lower BP. Symptoms improved through out the day. Patient was seen in consultation by Dr. Barriga who felt her minimally elevated troponin was not indicative of ACS and was secondary to elevated BP. Dr. Barriga recommended ILR to eval for paroxysmal a-fib as a source of CVA. Also recommends possible ROXI to evaluate for PFO. Patient would prefer to do this as OP. MRI not available during hospitalization and will be obtained as OP. Patient did not want to remain hospitalized for further observation. DC'd on ASA, stain and Toprol. Close follow-up as OP. Labs and Pending Lab Test: Laboratory Tests 01/22/20 08:37: White Blood Count 7.3, Red Blood Count 4.71, Hemoglobin 13.4, Hematocrit 42, Mean Corpuscular Volume 89, Mean Corpuscular Hemoglobin 29, Mean Corpuscular Hemoglobin Concent 32, Red Cell Distribution Width 14.0, Platelet Count 371, Mean Platelet Volume 9.1, Neutrophils (%) (Auto) 61, Lymphocytes (%) (Auto) 26, Monocytes (%) (Auto) 8, Eosinophils (%) (Auto) 4, Basophils (%) (Auto) 1, Neutrophils # (Auto) 4.5, Lymphocytes # (Auto) 1.9, Monocytes # (Auto) 0.6, Eosinophils # (Auto) 0.3, Basophils # (Auto) 0.1, Prothrombin Time 14.2, INR Comment 1.1, Activated Partial Thromboplast Time 29, D-Dimer < 0.27, Sodium Level 140, Potassium Level 3.8, Chloride Level 105, Carbon Dioxide Level 26, Anion Gap 9, Blood Urea Nitrogen 16, Creatinine 0.82, Estimat Glomerular Filtration Rate > 60, BUN/Creatinine Ratio 20, Glucose Level 132H, Calcium Level 8.8, Corrected Calcium 9.0, Total Bilirubin 0.4, Aspartate Amino Transf (AST/SGOT) 23, Alanine Aminotransferase (ALT/SGPT) 24, Alkaline Phosphatase 116, Troponin I 0.046H, Total Protein 6.8, Albumin 3.8 01/22/20 09:06: Urine Color YELLOW, Urine Clarity CLEAR, Urine pH 6.5, Urine Specific [place] 1.010L, Urine Protein NEGATIVE, Urine Glucose (UA) NEGATIVE, Urine Ketones NEGATIVE, Urine Nitrite NEGATIVE, Urine Bilirubin NEGATIVE, Urine Urobilinogen 0.2, Urine Leukocyte Esterase 1+H, Urine RBC (Auto) NEGATIVE, Urine RBC NONE, Urine WBC 0-2, Urine Squamous Epithelial Cells NONE, Urine Crystals NONE, Urine Bacteria NEGATIVE, Urine Casts NONE, Urine Mucus NEGATIVE, Urine Culture Indicated NO Home Meds Active Atorvastatin Calcium 20 Mg Tablet 20 Mg PO DAILY Toprol Xl (Metoprolol Succinate) 50 Mg Tab.er.24h 50 Mg PO DAILY Aspirin EC (Aspirin) 325 Mg Tablet. 325 Mg PO DAILY Reported Aspir 81 (Aspirin) 81 Mg Tablet. 81 Mg PO DAILY Zyrtec-D Tablet (Cetirizine HCl/Pseudoephedrine) 1 Each Tab.er.12h 1 Each PO DAILY Aciphex (Rabeprazole Sodium) 20 Mg Tablet. 20 Mg PO DAILY Assessment/Pt DC Instructions Increase Aspirin to 325mg daily Start atrovastatin 20mg daily - will increase to 40 mg in 2-4 weeks. Start Toprol XL 50mg daily Hold certrizine/pseudoephedrine due to elevated BP. Follow-up with Dr. Segura next week. Discharge Diet: Low Fat/Low Cholesterol Consulations Consultations Dr. Barriga Discharge Physical Examination Allergies: Coded Allergies: Sulfa (Sulfonamide Antibiotics) (Verified Allergy, Unknown, 01/22/20) General Appearance: No Apparent Distress, WD/WN HEENT: PERRL/EOMI Respiratory: Lungs Clear, Normal Breath Sounds, No Accessory Muscle Use, No Respiratory Distress Cardiovascular: Regular Rate, Rhythm, No Edema, No Murmur Skin: Normal Color, Warm/Dry Neurologic/Psychiatric: Alert, Oriented x3, Normal Mood/Affect Clinical Quality Measures DVT/VTE Risk/Contraindication: Risk Factor Score Per Nursin RFS Level Per Nursing on Admit: 3=High Stroke: Date of last known well: Jan 20, 2020 Time of last known well: 22:00 LUIS SEGURA DO Jan 22, 2020 18:33
--- OUTSIDE RECORDS SUMMARY | 2020-01-26 05:10 | XMS REPORT ---
Author Author Keyana SUBRAMANIAN Organization [facility] Address [address] [place] [address] Care Team Providers Care Count Room Clerk Name Role Phone EV SUBRAMANIAN Unavailable PROBLEMS Type Condition ICD9-CM Code POB07-CS Code Onset Dates Condition S tatus SNOMED Code Problem Non-seasonal allergic rhinitis, unspecified trigger J30.89 Active 91855360 Problem Gastroesophageal reflux disease without esophagitis K21.9 Active 010684686 ALLERGIES No Information ENCOUNTERS Encounter Location Date Diagnosis [place] [address] [address] Jun, [place] [address] [address] Feb, [place] [address] [address] Nov, Wheezing R06.2 and Bronchiti s J40 [place] [address] [address] Sep, [place] [address] [place] [id number] [place] [address] Aug, Cervical cancer screening Z1 2.4 ; Annual physical exam Z00.00 ; Subacute vaginitis N76.1 ; Colon cancer screening Z12.11 ; Breast cancer screening Z12.31 ; 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 ; Non-seasonal allergic rhinitis, unspecified trigger J30.89 ; Gastroesophageal reflux disease without esophagitis K21.9 and Postmenopausal bleeding N95.0 [place] [address] [place] [id number] [place] [address] Jul, [place] [address] [place] [id number] [place] [address] Apr, [facility] [address] [facility] [id number] [address] [place] [address] March, Bronchospasm, acute J98.01 [facility] [address] [facility] [id number] [address] [place] [address] March, Cough present for greater th an 3 weeks R05 [facility] [address] [place] [id number] [address] [place] [address] Dec, [facility] [address] [facility] [id number] [address] [place] [address] Nov, Influenza-like illness R69 [place] [address] [place] [id number] [place] [address] Nov, Viral upper respiratory trac t infection J06.9 and Laryngitis J04.0 [place] [address] [address] Aug, [facility] [address] [place] [id number] [place] [address] Aug, Rash R21 and Jaw pain R68.84 [place] [address] [place] [id number] [place] [address] March, [facility] [address] [place] [id number] [place] [address] Aug, Dysuria R30.0 and Acute righ t-sided low back pain without sciatica M54.5 [facility] [address] [facility] [id number] [address] [place] [address] Jul, Bronchitis J40 [facility] [address] [place] [id number] [address] [place] [address] Jan, [facility] [address] [place] [id number] [address] [place] [address] March, [facility] [address] [place] [id number] [place] [address] 14 Feb, 2015 [facility] [address] [id number] [address] [place] [address], [place] [address] Feb, [facility] [address] [id number] [address] [place] [address], [place] [address] Dec, [facility] [address] [id number] [address] [place] [address], [place] [address] Dec, [facility] [address] [id number] [address] [place] [address], [place] [address] Sep, [facility] [address] [id number] [address] [place] [address], [place] [address] Sep, [facility] [address] [id number] [address] [place] [address], [place] [address] Jun, [facility] [address] [id number] [address] [place] [address], [place] [address] Jun, [facility] [address] [id number] [address] [place] [address], [place] [address] Feb, [facility] [address] [id number] [address] [place] [address], [place] [address] Feb, [facility] [address] [id number] [address] [place] [address], [place] [address] Sep, [facility] [address] [id number] [address] [place] [address], [place] [address] Sep, [facility] [address] [id number] [address] [place] [address], [place] [address] 04 Aug, 2013 [facility] [address] [id number] [address] [place] [address], [place] [address] May, [facility] [address] [id number] [address] [place] [address], [place] [address] Apr, [facility] [address] [id number] [address] [place] [address], [place] [address] Feb, [facility] [address] [id number] [address] [place] [address] Jan, [facility] [address] [facility] [id number] [address] [place] [address] May, [facility] [address] [facility] [id number] [address] [place] [address] March, [facility] [address] [facility] [id number] [address] [place] [address] Jan, [facility] [address] [facility] [id number] [address] [place] [address] Aug, IMMUNIZATIONS No Known Immunizations SOCIAL HISTORY Never Assessed REASON FOR VISIT PLAN OF CARE VITAL SIGNS MEDICATIONS Unknown Medications RESULTS No Results PROCEDURES No Known procedures INSTRUCTIONS MEDICATIONS ADMINISTERED No Known Medications MEDICAL (GENERAL) HISTORY Type Description Date Medical History Allergic Rhinitis Medical History GERD Surgical History Tonsilectomy Surgical History 1989, 1984
--- OUTSIDE RECORDS SUMMARY | 2020-01-26 05:10 | XMS REPORT ---
Author Author Keyana DICKEY Organization [facility] Address [address] [place] [address] Care Team Providers Care Hat And Cap Sewer Name Role Phone ERICKA DICKEY Unavailable PROBLEMS Type Condition ICD9-CM Code FCT70-FU Code Onset Dates Condition S tatus SNOMED Code Problem Non-seasonal allergic rhinitis, unspecified trigger J30.89 Active 96022770 Problem Gastroesophageal reflux disease without esophagitis K21.9 Active 559588122 ALLERGIES No Information ENCOUNTERS Encounter Location Date Diagnosis [place] [address] [address] Feb, [place] [address] [address] Nov, Wheezing R06.2 and Bronchiti s J40 [place] [address] [place] [id number] [place] [address] Sep, [place] [address] [place] [id number] [address] [place] [address] Aug, Cervical cancer screening Z1 2.4 ; Annual physical exam Z00.00 ; Subacute vaginitis N76.1 ; Colon cancer screening Z12.11 ; Breast cancer screening Z12.31 ; 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 [address] [facility] [id number] [address] [place] [address] March, Cough present for greater th an 3 weeks R05 [facility] [address] [facility] [id number] [address] [place] [address] Dec, [facility] [address] [place] [id number] [address] [place] [address] Nov, Influenza-like illness R69 [facility] [address] [facility] [id number] [address] [place] [address] Nov, Viral upper respiratory trac t infection J06.9 and Laryngitis J04.0 [facility] [address] [facility] [id number] [address] [place] [address] Aug, [facility] [address] [place] [id number] [place] [address] Aug, Rash R21 and Jaw pain R68.84 [facility] [address] [facility] [id number] [address] [place] [address] March, [facility] [address] [place] [id number] [place] [address] Aug, Dysuria R30.0 and Acute righ t-sided low back pain without sciatica M54.5 [facility] [address] [facility] [id number] [address] [place] [address] Jul, Bronchitis J40 [facility] [address] [facility] [id number] [address] [place] [address] Jan, [facility] [address] [facility] [id number] [address] [place] [address] March, [facility] [address] [facility] [id number] [address] [place] [address] Feb, [facility] [address] [place] [id number] [address] [place] [address] Feb, [facility] [address] [id number] [address] [place] [address], [place] [address] Dec, [facility] [address] [id number] [address] [place] [address], [place] [address] Dec, [facility] [address] [id number] [address] [place] [address], [place] [address] Sep, [facility] [address] [id number] [address] [place] [address], [place] [address] Sep, [facility] [address] [id number] [address] [place] [address], [place] [address] Jun, [facility] [address] [id number] [address] [place] [address], [place] [address] Jun, [facility] [address] [id number] [address] [place] [address], [place] [address] Feb, [facility] [address] [id number] [address] [place] [address], [place] [address] Feb, [facility] [address] [id number] [address] [place] [address], [place] [address] Sep, [facility] [address] [id number] [address] [place] [address], [place] [address] Sep, [facility] [address] [id number] [address] [place] [address], [place] [address] Aug, [facility] [address] [id number] [address] [place] [address], [place] [address] May, [facility] [address] [id number] [address] [place] [address], [place] [address] Apr, [facility] [address] [id number] [address] [place] [address], [place] [address] Feb, [facility] [address] [id number] [address] [place] [address], [place] [address] Jan, [facility] [address] [id number] [address] [place] [address] May, [facility] [address] [facility] [id number] [address] [place] [address] March, [facility] [address] [facility] [id number] [address] [place] [address] Jan, [facility] [address] [facility] [id number] [address] [place] [address] Aug, IMMUNIZATIONS No Known Immunizations SOCIAL HISTORY Never Assessed REASON FOR VISIT PLAN OF CARE VITAL SIGNS Height 64 in 2014-09-24 Weight 180 lbs 2014-09-24 Temperature 98 degrees Fahrenheit 2014-09-24 Heart Rate 80 bpm 2014-09-24 Respiratory Rate 18 2014-09-24 Blood pressure systolic 134 mmHg 2014-09-24 Blood pressure diastolic 68 mmHg 2014-09-24 MEDICATIONS Unknown Medications RESULTS No Results PROCEDURES No Known procedures INSTRUCTIONS MEDICATIONS ADMINISTERED No Known Medications MEDICAL (GENERAL) HISTORY Type Description Date Medical History Allergic Rhinitis Medical History GERD Surgical History Tonsilectomy Surgical History 1989, 1984
--- OUTSIDE RECORDS SUMMARY | 2020-01-26 05:10 | XMS REPORT ---
Author Author Keyana SEGURA [facility] Address [address] [place] [address] Care Team Providers Care Health Insurance Sales Agent Name Role Phone LUIS SEGURA Unavailable PROBLEMS Type Condition ICD9-CM Code QBI83-JA Code Onset Dates Condition S tatus SNOMED Code Problem Non-seasonal allergic rhinitis, unspecified trigger J30.89 Active 25011676 Problem Gastroesophageal reflux disease without esophagitis K21.9 Active 220865216 ALLERGIES No Information ENCOUNTERS Encounter Location Date Diagnosis [place] [address] [address] Dec, [place] [address] [address] 14 Dec, 2019 Cervical spine pain M54.2 ; Segmental dy sfunction of head region M99.00 ; Segmental dysfunction of cervical region M99.01 and Segmental dysfunction of thoracic region M99.02 [place] [address] [address] Dec, [place] [address] [address] Nov, [place] [address] [address] Aug, [place] [address] [address] Jun, [place] [address] [address] Feb, [place] [address] [address] Nov, Wheezing R06.2 and Bronchitis J40 [place] [address] [address] Sep, [place] [address] [address] Aug, Cervical cancer screening Z12.4 ; Annual physical exam Z00.00 ; Subacute vaginitis N76.1 ; Colon cancer screening Z12.11 ; Breast cancer screening Z12.31 ; 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 ; Non-seasonal allergic rhinitis, unspecified trigger J30.89 ; Gastroesophageal reflux disease without esophagitis K21.9 and Postmenopausal bleeding N95.0 [place] [address] [address] Jul, [place] [address] [address] Apr, [place] [address] [address] March, Bronchospasm, acute J98.01 [place] [address] [address] March, Cough present for greater than 3 weeks R 05 [place] [address] [address] Dec, [place] [address] [address] Nov, Influenza-like illness R69 [place] [address] [address] Nov, Viral upper respiratory tract infection J06.9 and Laryngitis J04.0 [place] [address] [address] Aug, [address] [address] Aug, Rash R21 and Jaw pain R68.84 [place] [address] [address] March, [place] [address] [address] Aug, Dysuria R30.0 and Acute right-sided low back pain without sciatica M54.5 [facility] [address] [place] [id number] [place] [address] Jul, Bronchitis J40 [facility] [address] [place] [id number] [place] [address] 14 Jan, 2016 [facility] [address] [address] March, [facility] [address] [address] Feb, [facility] [address] [address] Feb, [facility] [address] [address] Dec, [facility] [address] [address] Dec, [facility] [address] [place] [id number] [place] [address] Sep, [facility] [address] [address] Sep, [facility] [address] [address] Jun, [facility] [address] [address] Jun, [facility] [address] [place] [id number] [place] [address] Feb, [facility] [address] [address] Feb, [facility] [address] [address] Sep, [facility] [address] [address] 16 Sep, 2013 [facility] [address] [address] Aug, [facility] [address] [id number] [place] [address] May, [facility] [address] [facility] [place] [address] Apr, [facility] [address] [facility] [place] [address] Feb, [facility] [address] [address] Jan, [facility] [address] [facility] [place] [address] May, [facility] [address] [place] [id number] [place] [address] March, [facility] [address] [facility] [place] [address] Jan, [facility] [address] [facility] [place] [address] Aug, IMMUNIZATIONS No Known Immunizations SOCIAL HISTORY Never Assessed REASON FOR VISIT PLAN OF CARE VITAL SIGNS MEDICATIONS Unknown Medications RESULTS No Results PROCEDURES No Known procedures INSTRUCTIONS MEDICATIONS ADMINISTERED No Known Medications MEDICAL (GENERAL) HISTORY Type Description Date Medical History Allergic Rhinitis Medical History GERD Surgical History Tonsilectomy Surgical History 1984
--- OUTSIDE RECORDS SUMMARY | 2020-01-26 05:11 | XMS REPORT ---
Author Author Keyana SUBRAMANIAN [facility] Address [address] [place] [address] Care Team Providers Care Grass Farm Laborer Name Role Phone EV SUBRAMANIAN Unavailable PROBLEMS Type Condition ICD9-CM Code FHX30-QG Code Onset Dates Condition S tatus SNOMED Code Problem Postnasal drip 784.91 Active 13450 007 Problem Unspecified diseases of conjunctiva due to viruses 077.99 Active 09232096 Problem Other diseases of nasal cavity and sinuses 478.19 Active 065249887 Problem Unspecified disorder of the teeth and supporting structure s 525.9 Active 854358925 Problem Dizziness and giddiness 780.4 Active 318794614 Problem Unspecified conjunctivitis 372.30 Act gato 1211451 Problem Aggressive periodontitis, 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 77068240 ALLERGIES No Information SOCIAL HISTORY Never Assessed PLAN OF CARE VITAL SIGNS MEDICATIONS Medication Instructions Dosage Frequency Start Date End Date Duration S shai Cetirizine-Pseudoephedrine ER 5-120 MG Orally Twice a day 1 tablet 12 h 30 days Active RESULTS No Results PROCEDURES No Known procedures IMMUNIZATIONS No Known Immunizations MEDICAL (GENERAL) HISTORY Type Description Date Surgical History Tonsilectomy Surgical History 1989, 1984
--- OUTSIDE RECORDS SUMMARY | 2020-01-26 05:11 | XMS REPORT ---
Author Author Keyana SEGURA [facility] Address [address] [place] [address] Care Team Providers Care Reimbursement Director Name Role Phone LUIS SEGURA Unavailable PROBLEMS Type Condition ICD9-CM Code CWV82-TI Code Onset Dates Condition S tatus SNOMED Code Problem Postnasal drip 784.91 Active 39221 007 Problem Unspecified diseases of conjunctiva due to viruses 077.99 Active 29032204 Problem Other diseases of nasal cavity and sinuses 478.19 Active 596420874 Problem Unspecified disorder of the teeth and supporting structure s 525.9 Active 213097271 Problem Dizziness and giddiness 780.4 Active 424211645 Problem Unspecified conjunctivitis 372.30 Act gato 1555374 Problem Aggressive periodontitis, 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 86397372 ALLERGIES No Information ENCOUNTERS Encounter Location Date Diagnosis [place] [address] [address] Apr, [place] [address] [address] March, Bronchospasm, acute J98.01 [place] [address] [place] [id number] [address] [place] [address] March, Cough present for greater th an 3 weeks R05 [place] [address] [place] [id number] [address] [place] [address] Dec, [place] [address] [address] Nov, Influenza-like illness R69 [place] [address] [place] [id number] [address] [place] [address] Nov, Viral upper respiratory trac t infection J06.9 and Laryngitis J04.0 [facility] [address] [id number] [address] [place] [address] Aug, [facility] [address] [id number] [address] [place] [address] Aug, Rash R21 and Jaw pain R68.84 [facility] [address] [id number] [address] [place] [address] March, [facility] [address] [id number] [address] [place] [address] Aug, Dysuria R30.0 and Acute righ t-sided low back pain without sciatica M54.5 [facility] [address] [id number] [address] [place] [address] Jul, Bronchitis J40 [facility] [address] [id number] [address] [place] [address] Jan, [facility] [address] [id number] [address] [place] [address] March, [facility] [address] [id number] [address] [place] [address] Feb, [facility] [address] [id number] [address] [place] [phone] Feb, [facility] [address] [id number] [address] [place] [phone] Dec, [facility] [address] [id number] [address] [place] [address] Dec, [facility] [address] [id number] [address] [place] [phone] Sep, [facility] [address] [id number] [address] [place] [address] Sep, [facility] [address] [id number] [address] [place] [phone] Jun, [facility] [address] [id number] [address] [place] [phone] Jun, [facility] [address] [id number] [address] [place] [phone] Feb, [facility] [address] [id number] [address] [place] [phone] Feb, [facility] [address] [id number] [address] [place] [phone] Sep, [facility] [address] [id number] [address] [place] [phone] Sep, [facility] [address] [id number] [address] [place] [address] Aug, [facility] [address] [id number] [address] [place] [phone] May, [facility] [address] [id number] [address] [place] [address] Apr, [facility] [address] [id number] [address] [place] [phone] Feb, [facility] [address] [id number] [address] [place] [phone] Jan, [facility] [address] [id number] [address] [place] [address] May, [facility] [address] [id number] [address] [place] [address] March, [facility] [address] [id number] [address] [place] [address] Jan, [facility] [address] [id number] [address] [place] [address] Aug, IMMUNIZATIONS No Known Immunizations SOCIAL HISTORY Never Assessed REASON FOR VISIT Cough PLAN OF CARE VITAL SIGNS MEDICATIONS Medication Instructions Dosage Frequency Start Date End Date Duration S tatus ProAir HFA 108 (90 Base) MCG/ACT Inhalation every 6 hrs 2 puffs as needed March, Active RESULTS No Results PROCEDURES No Known procedures INSTRUCTIONS MEDICATIONS ADMINISTERED No Known Medications MEDICAL (GENERAL) HISTORY Type Description Date Surgical History Tonsilectomy Surgical History 1984
--- OUTSIDE RECORDS SUMMARY | 2020-01-26 05:11 | XMS REPORT ---
Author Author Keyana DICKEY Organization [facility] Address [address] [place] [address] Care Team Providers Care Aquatics Lifeguard Name Role Phone ERICKA DICKEY Unavailable PROBLEMS Type Condition ICD9-CM Code PBX88-TS Code Onset Dates Condition S tatus SNOMED Code Problem Gastroesophageal reflux disease without esophagitis K21.9 Active 780002844 Problem Non-seasonal allergic rhinitis, unspecified trigger J30.89 Active 19602935 ALLERGIES No Information ENCOUNTERS Encounter Location Date Diagnosis [place] [address] [address] Sep, [address] [address] Aug, Cervical cancer screening Z1 2.4 ; Annual physical exam Z00.00 ; Subacute vaginitis N76.1 ; Colon cancer screening Z12.11 ; Breast cancer screening Z12.31 ; 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 ; Non-seasonal allergic rhinitis, unspecified trigger J30.89 ; Gastroesophageal reflux disease without esophagitis K21.9 and Postmenopausal bleeding N95.0 [place] [address] [place] [id number] [address] [place] [address] Jul, [place] [address] [address] [place] [id number] [address] [place] [phone] Apr, [place] [address] [address] [place] [id number] [address] [place] [address] March, Bronchospasm, acute J98.01 [place] [address] [address] [place] [id number] [address] [place] [address] March, Cough present for greater th an 3 weeks R05 [place] [address] [address] [place] [id number] [place] [address] Dec, [facility] [address] [place] [id number] [address] [place] [address] Nov, Influenza-like illness R69 [facility] [address] [place] [id number] [address] [place] [phone] Nov, Viral upper respiratory trac t infection J06.9 and Laryngitis J04.0 [facility] [address] [place] [id number] [address] [place] [address] Aug, [facility] [address] [place] [id number] [address] [place] [address] Aug, Rash R21 and Jaw pain R68.84 [facility] [address] [address] March, [facility] [address] [address] Aug, Dysuria R30.0 and Acute righ t-sided low back pain without sciatica M54.5 [facility] [address] [place] [id number] [address] [place] [address] Jul, Bronchitis J40 [facility] [address] [place] [id number] [place] [phone] Jan, [facility] [address] [place] [id number] [address] [place] [address] March, [facility] [address] [place] [id number] [address] [place] [phone] Feb, [facility] [address] [place] [id number] [address] [place] [address] Feb, [facility] [address] [place] [id number] [address] [place] [address] Dec, [facility] [address] [place] [id number] [address] [place] [address] Dec, [facility] [address] [id number] [address] [place] [address], [place] [address] 07 Sep, 2014 [facility] [address] [id number] [address] [place] [address], [place] [address] Sep, [facility] [address] [id number] [address] [place] [address], [place] [address] Jun, [facility] [address] [id number] [address] [place] [address], [place] [address] Jun, [facility] [address] [id number] [address] [place] [address], [place] [address] Feb, [facility] [address] [id number] [address] [place] [address], [place] [address] Feb, [facility] [address] [id number] [address] [place] [address], [place] [address] Sep, [facility] [address] [id number] [address] [place] [address], [place] [address] Sep, [facility] [address] [id number] [address] [place] [address], [place] [address] Aug, [facility] [address] [id number] [address] [place] [address], [place] [address] May, [facility] [address] [id number] [address] [place] [address], [place] [address] Apr, [facility] [address] [id number] [address] [place] [address], [place] [address] Feb, [facility] [address] [id number] [address] [place] [address], [place] [address] Jan, [facility] [address] [id number] [address] [place] [address], [place] [address] May, [facility] [address] [id number] [address] [place] [address], [place] [address] March, [facility] [address] [id number] [address] [place] [address], [place] [address] Jan, [facility] [address] [facility] [id number] [address] [place] [address] Aug, IMMUNIZATIONS No Known Immunizations SOCIAL HISTORY Never Assessed REASON FOR VISIT Controlled Med Refill PLAN OF CARE VITAL SIGNS MEDICATIONS Medication [...]
--- OUTSIDE RECORDS SUMMARY | 2020-01-26 05:11 | XMS REPORT ---
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 41323731 Assessment Bronchitis J40 Jul, Active 71179 004 Problem Unspecified conjunctivitis 372.30 Act gato 5601771 Problem Unspecified diseases of conjunctiva due to viruses 077.99 Active 50983344 Problem Other diseases of nasal cavity and sinuses 478.19 Active Problem Dizziness and giddiness 780.4 Active 853902789 Problem Unspecified disorder of the teeth and supporting structure s 525.9 Active 403570368 Problem Postnasal drip 784.91 Active 91409 007 ALLERGIES Substance Reaction Event Type Date Status Sulfamethoxazole-Trimethoprim Unknown Drug Allergy Jul, 6 Active SOCIAL HISTORY No smoking Hx information available PLAN OF CARE VITAL SIGNS Height 64 in 2016-08-13 Weight 201 lbs 2016-08-13 Heart Rate 82 bpm 2016-08-13 Respiratory Rate 20 2016-08-13 BMI 34.50 kg/m2 2016-08-13 Blood pressure systolic 128 mmHg 2016-08-13 Blood pressure diastolic 78 mmHg 2016-08-13 MEDICATIONS Medication Instructions Dosage Frequency Start Date End Date Duration S tatus Promethazine-Codeine 6.25-10 MG/5ML Orally every 6 hrs 5 ml as need ed 6h Jul, Active Zyrtec-D 5-120 mg by oral route twice a day 1 tablet 12h Feb, 4 Active Aciphex 20 mg 1 tablet by Oral route 1 time per day 11 2014 Active Zithromax Z-Joselito 250 MG Orally Once a day 2 tablets on the first day, then 1 tablet daily for 4 days 24h Jul, Aug, 5 day(s) Acti ve PredniSONE 20 mg Orally Once a day 2 tablets 24h Jul, Aug, 05 days Active RESULTS No Results PROCEDURES Procedure Date Ordered Related Diagnosis Body Site Office Visit, Est Pt., Level 3 Aug 13, 2016 IMMUNIZATIONS No Known Immunizations
--- OUTSIDE RECORDS SUMMARY | 2020-01-26 05:11 | XMS REPORT ---
Author Author Keyana SEGURA [facility] [address] Address [address] [place] [address] Care Team Providers Care Integration Director Name Role Phone LUIS SEGURA Unavailable PROBLEMS Type Condition ICD9-CM Code DSR57-MD Code Onset Dates Condition S tatus SNOMED Code Problem Postnasal drip 784.91 Active 67370 007 Problem Unspecified diseases of conjunctiva due to viruses 077.99 Active 69645629 Problem Other diseases of nasal cavity and sinuses 478.19 Active 625463173 Problem Unspecified disorder of the teeth and supporting structure s 525.9 Active 130554937 Problem Dizziness and giddiness 780.4 Active 431739281 Problem Unspecified conjunctivitis 372.30 Act gato 3931976 Problem Aggressive periodontitis, 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 95904480 ALLERGIES No Information ENCOUNTERS Encounter Location Date Diagnosis [place] [address] [address] Apr, [place] [address] [address] March, Bronchospasm, acute J98.01 [place] [address] [place] [id number] [address] [place] [address] March, Cough present for greater th an 3 weeks R05 [place] [address] [place] [id number] [address] [place] [address] Dec, [place] [address] [address] Nov, Influenza-like illness R69 [place] [address] [place] [id number] [address] [place] [address] Nov, Viral upper respiratory trac t infection J06.9 and Laryngitis J04.0 [facility] [address] [id number] [address] [place] [address] Aug, [facility] [address] [id number] [address] [place] [address] Aug, Rash R21 and Jaw pain R68.84 [facility] [address] [id number] [address] [place] [address] March, [facility] [address] [id number] [address] [place] [address] Aug, Dysuria R30.0 and Acute righ t-sided low back pain without sciatica M54.5 [facility] [address] [id number] [address] [place] [address] Jul, Bronchitis J40 [facility] [address] [id number] [address] [place] [address] Jan, [facility] [address] [id number] [address] [place] [address] March, [facility] [address] [id number] [address] [place] [address] Feb, [facility] [address] [id number] [address] [place] [address] Feb, [facility] [address] [id number] [address] [place] [address] Dec, [facility] [address] [id number] [address] [place] [address] Dec, [facility] [address] [id number] [address] [place] [address] Sep, [facility] [address] [id number] [address] [place] [address] Sep, [facility] [address] [id number] [address] [place] [address] Jun, [facility] [address] [id number] [address] [place] [address] Jun, [facility] [address] [id number] [address] [place] [address] Feb, [facility] [address] [id number] [address] [place] [address] Feb, [facility] [address] [id number] [address] [place] [address] Sep, [facility] [address] [id number] [address] [place] [address] Sep, [facility] [address] [id number] [address] [place] [address] Aug, [facility] [address] [id number] [address] [place] [address] May, [facility] [address] [id number] [address] [place] [address] Apr, [facility] [address] [id number] [address] [place] [address] Feb, [facility] [address] [id number] [address] [place] [address] Jan, [facility] [address] [id number] [address] [place] [address] May, [facility] [address] [id number] [address] [place] [address] March, [facility] [address] [id number] [address] [place] [address] Jan, [facility] [address] [id number] [address] [place] [address] Aug, IMMUNIZATIONS No Known Immunizations SOCIAL HISTORY Never Assessed REASON FOR VISIT Rx PLAN OF CARE VITAL SIGNS MEDICATIONS Medication Instructions Dosage Frequency Start Date End Date Duration S tatus Tamiflu 75 MG Orally Twice a day 1 capsule 12h Nov, 5 day(s) Active RESULTS No Results PROCEDURES No Known procedures INSTRUCTIONS MEDICATIONS ADMINISTERED No Known Medications MEDICAL (GENERAL) HISTORY Type Description Date Surgical History Tonsilectomy Surgical History 1984
--- OUTSIDE RECORDS SUMMARY | 2020-01-26 05:11 | XMS REPORT ---
Author Author Keyana Padilla Doctor Organization [facility] Address Unknown Phone Unavailable Care Team Providers Care Fire Equipment Inspector Helper Name Role Phone Migration, Doctor Unavailable Unavailable PROBLEMS Type Condition ICD9-CM Code [id number] Code Onset Dates Condition S tatus SNOMED Code Problem Non-seasonal allergic rhinitis, unspecified trigger J30.89 Active 49822762 Problem Gastroesophageal reflux disease without esophagitis K21.9 Active 533634229 ALLERGIES No Information ENCOUNTERS Encounter Location Date Diagnosis [place] [address] [address] 02 Feb, 2019 [place] [address] [address] Nov, Wheezing R06.2 and Bronchiti s J40 [place] [address] [address] Sep, [place] [address] [place] [id number] [place] [address] Aug, Cervical cancer screening Z1 2.4 ; Annual physical exam Z00.00 ; Subacute vaginitis N76.1 ; Colon cancer screening Z12.11 ; Breast cancer screening Z12.31 ; 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 ; Non-seasonal allergic rhinitis, unspecified trigger J30.89 ; Gastroesophageal reflux disease without esophagitis K21.9 and Postmenopausal bleeding N95.0 [place] [address] [place] [address] Jul, [place] [address] [place] [id number] [address] [place] [address] Apr, [place] [address] [place] [id number] [address] [place] [address] March, Bronchospasm, acute J98.01 [place] [address] [place] [id number] [place] [address] March, Cough present for greater th an 3 weeks R05 [facility] [place] [address] [place] [id number] [place] [address] Dec, [facility] [place] [address] [place] [id number] [place] [phone] Nov, Influenza-like illness R69 [facility] [place] [address] [place] [id number] [place] [address] Nov, Viral upper respiratory trac t infection J06.9 and Laryngitis J04.0 [place] [address] [address] Aug, [facility] [place] [address] [address] Aug, Rash R21 and Jaw pain R68.84 [place] [address] [address] March, [facility] [place] [address] [address] Aug, Dysuria R30.0 and Acute righ t-sided low back pain without sciatica M54.5 [facility] [place] [address] [place] [id number] [place] [address] Jul, Bronchitis J40 [facility] [place] [address] [place] [id number] [place] [phone] Jan, [facility] [place] [address] [place] [id number] [place] [phone] March, [facility] [place] [address] [place] [id number] [place] [phone] 14 Feb, 2015 [facility] [place] [address] [place] [id number] [address] [place] [phone] 13 Feb, 2015 [facility] [place] [address] [place] [id number] [place] [phone] Dec, [facility] [address] [id number] [address] [place] [address], [place] [address] Dec, [facility] [address] [id number] [address] [place] [address], [place] [address] Sep, [facility] [address] [id number] [address] [place] [address], [place] [address] Sep, [facility] [address] [id number] [address] [place] [address], [place] [address] Jun, [facility] [address] [id number] [address] [place] [address], [place] [address] Jun, [facility] [address] [id number] [address] [place] [address], [place] [address] Feb, [facility] [address] [id number] [address] [place] [address], [place] [address] Feb, [facility] [address] [id number] [address] [place] [address], [place] [address] Sep, [facility] [address] [id number] [address] [place] [address], [place] [address] Sep, [facility] [address] [id number] [address] [place] [address], [place] [address] Aug, [facility] [address] [id number] [address] [place] [address], [place] [address] May, [facility] [address] [id number] [address] [place] [address], [place] [address] Apr, [facility] [address] [id number] [address] [place] [address], [place] [address] Feb, [facility] [address] [id number] [address] [place] [address], [place] [address] Jan, [facility] [address] [id number] [address] [place] [address], [place] [address] May, [facility] [address] [id number] [address] [address] March, [facility] [place] [address] [facility] [id number] [address] [place] [address] Jan, [facility] [place] [address] [facility] [id number] [place] [address] Aug, IMMUNIZATIONS No Known Immunizations SOCIAL HISTORY Never Assessed REASON FOR VISIT [facility] PLAN OF CARE VITAL SIGNS MEDICATIONS Medication Instructions Dosage Frequency Start Date End Date Duration S tatus Flonase 50 mcg/actuation 1 sprays by Mario al route 2 times per day for 7 days in each nostril Apr, Active MethylPREDNISolone 4 mg by Oral route day for 6 days as directed per dose pack Apr, Active cromolyn 4 % by Topical route2 gtts 4 times a day as needed May, Active Zyrtec-D 5-120 mg 1 tablet by Oral route 2 times per day Feb, Active Amoxicillin 500 mg 2 capsule by Oral route 2 times per day for 10 day(s) Jun, Active Erythromycin 5 mg/gram (0.5 %) apply 1 c m ribbon into the lower conjunctival sac in both eyes by ophthalmic route 4 times per day for 7 days Jan, Active Aciphex 20 mg 1 tablet by Oral route 1 time per day 2014 Active meclizine 25 mg 1 tablet by Oral route 3 times per day PRN Apr, Active RESULTS No Results PROCEDURES No Known procedures INSTRUCTIONS MEDICATIONS ADMINISTERED No Known Medications MEDICAL (GENERAL) HISTORY Type Description Date Medical History Allergic Rhinitis Medical History GERD Surgical History Tonsilectomy Surgical History 1989, 1984
--- OUTSIDE RECORDS SUMMARY | 2020-01-26 05:11 | XMS REPORT ---
Author Author Keyana DICKEY Organization [facility] Address [address] [place] [address] Care Team Providers Care Settlement Agent Name Role Phone ERICKA DICKEY Unavailable PROBLEMS Type Condition ICD9-CM Code [id number] Code Onset Dates Condition S tatus SNOMED Code Problem Non-seasonal allergic rhinitis, unspecified trigger J30.89 Active 46273543 Problem Gastroesophageal reflux disease without esophagitis K21.9 Active 831651830 ALLERGIES No Information ENCOUNTERS Encounter Location Date Diagnosis [place] [address] [address] Feb, [place] [address] [address] Nov, Wheezing R06.2 and Bronchiti s J40 [place] [address] [place] [id number] [place] [address] Sep, [place] [address] [place] [id number] [address] [place] [address] Aug, Cervical cancer screening Z1 2.4 ; Annual physical exam Z00.00 ; Subacute vaginitis N76.1 ; Colon cancer screening Z12.11 ; Breast cancer screening Z12.31 ; 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 ; Non-seasonal allergic rhinitis, unspecified trigger J30.89 ; Gastroesophageal reflux disease without esophagitis K21.9 and Postmenopausal bleeding N95.0 [place] [address] [place] [id number] [address] [place] [address] Jul, [place] [address] [place] [id number] [address] [place] [address] Apr, [place] [address] [place] [id number] [place] [address] March, Bronchospasm, acute J98.01 [facility] [address] [facility] [id number] [address] [place] [address] March, Cough present for greater th an 3 weeks R05 [facility] [address] [facility] [id number] [address] [place] [address] Dec, [facility] [address] [place] [id number] [address] [place] [phone] Nov, Influenza-like illness R69 [facility] [address] [facility] [id number] [address] [place] [phone] Nov, Viral upper respiratory trac t infection J06.9 and Laryngitis J04.0 [facility] [address] [facility] [id number] [address] [place] [address] Aug, [facility] [address] [place] [id number] [place] [address] Aug, Rash R21 and Jaw pain R68.84 [facility] [address] [facility] [id number] [address] [place] [address] March, [facility] [address] [place] [id number] [place] [address] Aug, Dysuria R30.0 and Acute righ t-sided low back pain without sciatica M54.5 [facility] [address] [facility] [id number] [address] [place] [address] Jul, Bronchitis J40 [facility] [address] [facility] [id number] [address] [place] [address] Jan, [facility] [address] [facility] [id number] [address] [place] [phone] March, [facility] [address] [facility] [id number] [address] [place] [phone] Feb, [facility] [address] [place] [id number] [address] [place] [phone] Feb, [facility] [address] [id number] [address] [place] [address], [place] [address] Dec, [facility] [address] [id number] [address] [place] [address], [place] [address] Dec, [facility] [address] [id number] [address] [place] [address], [place] [address] Sep, [facility] [address] [id number] [address] [place] [address], [place] [address] Sep, [facility] [address] [id number] [address] [place] [address], [place] [address] Jun, [facility] [address] [id number] [address] [place] [address], [place] [address] Jun, [facility] [address] [id number] [address] [place] [address], [place] [address] Feb, [facility] [address] [id number] [address] [place] [address], [place] [address] Feb, [facility] [address] [id number] [address] [place] [address], [place] [address] Sep, [facility] [address] [id number] [address] [place] [address], [place] [address] Sep, [facility] [address] [id number] [address] [place] [address], [place] [address] Aug, [facility] [address] [id number] [address] [place] [address], [place] [address] May, [facility] [address] [id number] [address] [place] [address], [place] [address] Apr, [facility] [address] [id number] [address] [place] [address], [place] [address] Feb, [facility] [address] [id number] [address] [place] [address], [place] [address] Jan, [facility] [address] [id number] [address] [place] [phone] May, [facility] [address] [facility] [id number] [address] [place] [phone] March, [facility] [address] [facility] [id number] [address] [place] [address] Jan, [facility] [address] [facility] [id number] [address] [place] [phone] Aug, IMMUNIZATIONS No Known Immunizations SOCIAL HISTORY Never Assessed REASON FOR VISIT PLAN OF CARE VITAL SIGNS Temperature 98.1 degrees Fahrenheit 2014-07-06 Heart Rate 82 bpm 2014-07-06 Respiratory Rate 18 2014-07-06 Blood pressure systolic 132 mmHg 2014-07-06 Blood pressure diastolic 64 mmHg 2014-07-06 MEDICATIONS Unknown Medications RESULTS No Results PROCEDURES No Known procedures INSTRUCTIONS MEDICATIONS ADMINISTERED No Known Medications MEDICAL (GENERAL) HISTORY Type Description Date Medical History Allergic Rhinitis Medical History GERD Surgical History Tonsilectomy Surgical History 1989, 1984
--- OUTSIDE RECORDS SUMMARY | 2020-01-26 05:11 | XMS REPORT ---
Author Author Keyana DICKEY Organization [facility] Address [address] [place] [address] Care Team Providers Care Product Management Consultant Name Role Phone ERICKA DICKEY Unavailable PROBLEMS Type Condition ICD9-CM Code [id number] Code Onset Dates Condition S tatus SNOMED Code Problem Postnasal drip 784.91 Active 50562 007 Problem Unspecified diseases of conjunctiva due to viruses 077.99 Active 86573785 Problem Other diseases of nasal cavity and sinuses 478.19 Active 626674261 Problem Unspecified disorder of the teeth and supporting structure s 525.9 Active 444185292 Problem Dizziness and giddiness 780.4 Active 673887790 Problem Unspecified conjunctivitis 372.30 Act gato 5972506 Problem Aggressive periodontitis, 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 34434445 ALLERGIES No Information ENCOUNTERS Encounter Location Date Diagnosis [place] [address] [place] [id number] [address] [place] [address] Dec, [place] [address] [place] [id number] [address] [place] [address] Nov, Influenza-like illness R69 [place] [address] [address] Nov, Viral upper respiratory trac t infection J06.9 and Laryngitis J04.0 [place] [address] [place] [id number] [address] [place] [address] Aug, [place] [address] [place] [id number] [address] [place] [address] Aug, Rash R21 and Jaw pain R68.84 [place] [address] [place] [id number] [address] [place] [address] March, [place] [address] [place] [address] Aug, Dysuria R30.0 and Acute righ t-sided low back pain without sciatica M54.5 [facility] [address] [id number] [address] [place] [address] Jul, Bronchitis J40 [facility] [address] [id number] [address] [place] [address] Jan, [facility] [address] [id number] [address] [place] [address] March, [facility] [address] [id number] [address] [place] [address], [place] [address] Feb, [facility] [address] [id number] [address] [place] [address] Feb, [facility] [address] [id number] [address] [place] [address] Dec, [facility] [address] [id number] [address] [place] [address] Dec, [facility] [address] [id number] [address] [place] [address] Sep, [facility] [address] [id number] [address] [place] [address] Sep, [facility] [address] [id number] [address] [place] [id number] Jun, [facility] [address] [id number] [address] [place] [address] Jun, [facility] [address] [id number] [address] [place] [address] Feb, [facility] [address] [id number] [address] [place] [address] Feb, [facility] [address] [id number] [address] [place] [address] Sep, [facility] [address] [id number] [address] [place] [address] Sep, [facility] [address] [id number] [address] [place] [address] Aug, [facility] [address] [id number] [address] [place] [address] May, [facility] [address] [id number] [address] [place] [address] Apr, [facility] [address] [id number] [address] [place] [address] Feb, [facility] [address] [id number] [address] [place] [address] Jan, [facility] [address] [id number] [address] [place] [address] May, [facility] [address] [id number] [address] [place] [address] March, [facility] [address] [id number] [address] [place] [address] Jan, [facility] [address] [id number] [address] [place] [address] Aug, IMMUNIZATIONS No Known Immunizations SOCIAL HISTORY Never Assessed REASON FOR VISIT Refill request PLAN OF CARE VITAL SIGNS MEDICATIONS Medication Instructions Dosage Frequency Start Date End Date Duration S shai Cetirizine-Pseudoephedrine ER 5-120 MG Orally Twice a day 1 tablet 12h Aug, 30 days Active RESULTS No Results PROCEDURES No Known procedures INSTRUCTIONS MEDICATIONS ADMINISTERED No Known Medications MEDICAL (GENERAL) HISTORY Type Description Date Surgical History Tonsilectomy Surgical History 1989, 1984
--- OUTSIDE RECORDS SUMMARY | 2020-01-26 05:11 | XMS REPORT ---
Author Author Keyana Padilla Doctor Organization [facility] Address Unknown Phone Unavailable Care Team Providers Care Certified Energy Manager Name Role Phone Migration, Doctor Unavailable Unavailable PROBLEMS Type Condition ICD9-CM Code [id number] Code Onset Dates Condition S tatus SNOMED Code Problem Non-seasonal allergic rhinitis, unspecified trigger J30.89 Active 33066266 Problem Gastroesophageal reflux disease without esophagitis K21.9 Active 049345978 ALLERGIES No Information ENCOUNTERS Encounter Location Date Diagnosis [place] [address] [address] 02 Feb, 2019 [place] [address] [address] Nov, Wheezing R06.2 and Bronchiti s J40 [place] [address] [address] Sep, [place] [address] [place] [id number] [address] [place] [phone] Aug, Cervical cancer screening Z1 2.4 ; Annual physical exam Z00.00 ; Subacute vaginitis N76.1 ; Colon cancer screening Z12.11 ; Breast cancer screening Z12.31 ; 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 ; Non-seasonal allergic rhinitis, unspecified trigger J30.89 ; Gastroesophageal reflux disease without esophagitis K21.9 and Postmenopausal bleeding N95.0 [place] [address] [place] [address] Jul, [place] [address] [place] [id number] [address] [place] [address] Apr, [place] [address] [place] [id number] [address] [place] [address] March, Bronchospasm, acute J98.01 [place] [address] [address] [place] [id number] [place] [phone] March, Cough present for greater th an 3 weeks R05 [facility] [address] [place] [id number] [place] [address] Dec, [facility] [address] [place] [id number] [place] [address] Nov, Influenza-like illness R69 [facility] [address] [place] [id number] [place] [phone] Nov, Viral upper respiratory trac t infection J06.9 and Laryngitis J04.0 [place] [address] [address] Aug, [facility] [address] [address] Aug, Rash R21 and Jaw pain R68.84 [place] [address] [address] March, [facility] [address] [address] Aug, Dysuria R30.0 and Acute righ t-sided low back pain without sciatica M54.5 [facility] [address] [place] [id number] [address] [place] [phone] Jul, Bronchitis J40 [facility] [address] [place] [id number] [address] [place] [phone] Jan, [facility] [address] [place] [id number] [address] [place] [phone] March, [facility] [address] [place] [id number] [place] [phone] 14 Feb, 2015 [facility] [address] [place] [id number] [address] [place] [phone] 13 Feb, 2015 [facility] [address] [place] [id number] [place] [phone] Dec, [facility] [address] [id number] [address] [place] [address], [place] [address] Dec, [facility] [address] [id number] [address] [place] [address], [place] [address] Sep, [facility] [address] [id number] [address] [place] [address], [place] [address] Sep, [facility] [address] [id number] [address] [place] [address], [place] [address] Jun, [facility] [address] [id number] [address] [place] [address], [place] [address] Jun, [facility] [address] [id number] [address] [place] [address], [place] [address] Feb, [facility] [address] [id number] [address] [place] [address], [place] [address] Feb, [facility] [address] [id number] [address] [place] [address], [place] [address] Sep, [facility] [address] [id number] [address] [place] [address], [place] [address] Sep, [facility] [address] [id number] [address] [place] [address], [place] [address] Aug, [facility] [address] [id number] [address] [place] [address], [place] [address] May, [facility] [address] [id number] [address] [place] [address], [place] [address] Apr, [facility] [address] [id number] [address] [place] [address], [place] [address] Feb, [facility] [address] [id number] [address] [place] [address], [place] [address] Jan, [facility] [address] [id number] [address] [place] [address], [place] [address] May, [facility] [address] [id number] [address] [place] [address] March, [facility] [address] [facility] [id number] [address] [place] [phone] Jan, [facility] [address] [facility] [id number] [address] [place] [phone] Aug, IMMUNIZATIONS No Known Immunizations SOCIAL HISTORY Never Assessed REASON FOR VISIT EMR[place] [place] [place]AN OF CARE VITAL SIGNS MEDICATIONS Unknown Medications RESULTS No Results PROCEDURES No Known procedures INSTRUCTIONS MEDICATIONS ADMINISTERED No Known Medications MEDICAL (GENERAL) HISTORY Type Description Date Medical History Allergic Rhinitis Medical History GERD Surgical History Tonsilectomy Surgical History 1989, 1984
--- OUTSIDE RECORDS SUMMARY | 2020-01-26 05:11 | XMS REPORT ---
Author Author Keyana SEGURA [facility] Address [address] [place] [address] Care Team Providers Care Clinical Product Manager Name Role Phone LUIS SEGURA Unavailable PROBLEMS Type Condition ICD9-CM Code [id number] Code Onset Dates Condition S tatus SNOMED Code Problem Gastroesophageal reflux disease without esophagitis K21.9 Active 553311376 Problem Non-seasonal allergic rhinitis, unspecified trigger J30.89 Active 64963329 ALLERGIES Substance Reaction Event Type Date Status Sulfamethoxazole-Trimethoprim anaphylaxis Drug Allergy Aug, 201 8 Active ENCOUNTERS Encounter Location Date Diagnosis [place] [address] [place] [address] Sep, [place] [address] [address] [place] [id number] [address] [place] [address] Aug, Cervical cancer screening Z1 2.4 ; Annual physical exam Z00.00 ; Subacute vaginitis N76.1 ; Colon cancer screening Z12.11 ; Breast cancer screening Z12.31 ; 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 ; Non-seasonal allergic rhinitis, unspecified trigger J30.89 ; Gastroesophageal reflux disease without esophagitis K21.9 and Postmenopausal bleeding N95.0 [place] [id number] [place] [id number] [address] [place] [address] Jul, [place] [address] [place] [id number] [address] [place] [address] Apr, [place] [address] [place] [id number] [address] [place] [address] March, Bronchospasm, acute J98.01 [place] [address] [place] [id number] [address] [place] [address] March, Cough present for greater th an 3 weeks R05 [facility] [address] [facility] [id number] [address] [place] [address] Dec, [facility] [address] [facility] [id number] [address] [place] [address] Nov, Influenza-like illness R69 [facility] [address] [facility] [id number] [address] [place] [address] Nov, Viral upper respiratory trac t infection J06.9 and Laryngitis J04.0 [facility] [address] [facility] [id number] [address] [place] [address] Aug, [facility] [address] [facility] [id number] [address] [place] [address] Aug, Rash R21 and Jaw pain R68.84 [facility] [address] [place] [id number] [place] [address] March, [facility] [address] [place] [id number] [address] [place] [address] Aug, Dysuria R30.0 and Acute righ t-sided low back pain without sciatica M54.5 [facility] [address] [facility] [id number] [address] [place] [address] Jul, Bronchitis J40 [facility] [address] [facility] [id number] [address] [place] [phone] Jan, [facility] [address] [facility] [id number] [address] [place] [phone] March, [facility] [address] [facility] [id number] [address] [place] [phone] 14 Feb, 2015 [facility] [address] [place] [id number] [address] [place] [phone] Feb, [facility] [address] [facility] [id number] [address] [place] [phone] 11 Dec, 2014 [facility] [address] [place] [id number] [address] [place] [phone] Dec, [facility] [address] [id number] [address] [place] [address], [place] [address] Sep, [facility] [address] [id number] [address] [place] [address], [place] [address] Sep, [facility] [address] [id number] [address] [place] [address], [place] [address] Jun, [facility] [address] [id number] [address] [place] [address], [place] [address] Jun, [facility] [address] [id number] [address] [place] [address], [place] [address] Feb, [facility] [address] [id number] [address] [place] [address], [place] [address] Feb, [facility] [address] [id number] [address] [place] [address], [place] [address] Sep, [facility] [address] [id number] [address] [place] [address], [place] [address] Sep, [facility] [address] [id number] [address] [place] [address], [place] [address] Aug, [facility] [address] [id number] [address] [place] [address], [place] [address] May, [facility] [address] [id number] [address] [place] [address], [place] [address] Apr, [facility] [address] [id number] [address] [place] [address], [place] [address] Feb, [facility] [address] [id number] [address] [place] [address], [place] [address] Jan, [facility] [address] [id number] [address] [place] [address], [place] [address] May, [facility] [address] [id number] [address] [place] [address], [place] [address] March, [facility] [address] [id number] [place] [address] Jan, [facility] [address] [facility] [id number] [address] [place] [phone] Aug, IMMUNIZATIONS No Known Immunizations SOCIAL HISTORY Never Assessed REASON FOR VISIT physical PLAN OF CARE Activity Details Follow Up prn Reason: Pending Test COLOGUARD FITDNA (OUTSIDE OR BLANCA) Pending Test Mammogram, Bilateral Screeni ng VITAL SIGNS MEDICATIONS Medication Instructions Dosage Frequency Start Date End Date Duration S tatus Diflucan 150 MG Orally once 1 tablet Aug, Sep, 1 dose Active Alprazolam 0.5 MG Orally once, 30 min prior to procedure 1 tablet Sep, Sep, 1 dose Active Aciphex 20 mg 1 tablet by Oral route 1 time per day 11 2014 90 Active Cetirizine-Pseudoephedrine ER 5-120 MG Orally Twice a day 1 tablet 12 h 30 days Active RESULTS No Results PROCEDURES Procedure Date Ordered Result Body Site SPECIMEN HANDLING Sep 17, 2018 INSTRUCTIONS MEDICATIONS ADMINISTERED No Known Medications MEDICAL (GENERAL) HISTORY Type Description Date Medical History Allergic Rhinitis Medical History GERD Surgical History Tonsilectomy Surgical History 1989, 1984
--- OUTSIDE RECORDS SUMMARY | 2020-01-26 05:11 | XMS REPORT ---
Author Author Keyana SEGURA [facility] Address [address] [place] [address] Care Team Providers Care Tube Machine Operator Name Role Phone LUIS SEGURA Unavailable PROBLEMS Type Condition ICD9-CM Code RKG39-UH Code Onset Dates Condition S tatus SNOMED Code Problem Postnasal drip 784.91 Active 70340 007 Problem Unspecified diseases of conjunctiva due to viruses 077.99 Active 91713551 Problem Other diseases of nasal cavity and sinuses 478.19 Active 702314013 Problem Unspecified disorder of the teeth and supporting structure s 525.9 Active 596953271 Problem Dizziness and giddiness 780.4 Active 011381417 Problem Unspecified conjunctivitis 372.30 Act gato 7120984 Problem Aggressive periodontitis, 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 99559315 ALLERGIES No Information ENCOUNTERS Encounter Location Date Diagnosis [place] [address] [address] Apr, [place] [address] [address] March, Bronchospasm, acute J98.01 [place] [address] [place] [id number] [address] [place] [address] March, Cough present for greater th an 3 weeks R05 [place] [address] [place] [id number] [address] [place] [address] Dec, [place] [address] [address] Nov, Influenza-like illness R69 [place] [address] [place] [id number] [address] [place] [address] Nov, Viral upper respiratory trac t infection J06.9 and Laryngitis J04.0 [facility] [address] [id number] [address] [place] [phone] Aug, [facility] [address] [id number] [address] [place] [address] Aug, Rash R21 and Jaw pain R68.84 [facility] [address] [id number] [address] [place] [address] March, [facility] [address] [id number] [address] [place] [phone] Aug, Dysuria R30.0 and Acute righ t-sided low back pain without sciatica M54.5 [facility] [address] [id number] [address] [place] [phone] Jul, Bronchitis J40 [facility] [address] [id number] [address] [place] [phone] Jan, [facility] [address] [id number] [address] [place] [phone] March, [facility] [address] [id number] [address] [place] [phone] Feb, [facility] [address] [id number] [address] [place] [address] Feb, [facility] [address] [id number] [address] [place] [address] Dec, [facility] [address] [id number] [address] [place] [phone] Dec, [facility] [address] [id number] [address] [place] [phone] Sep, [facility] [address] [id number] [address] [place] [phone] Sep, [facility] [address] [id number] [address] [place] [phone] Jun, [facility] [address] [id number] [address] [place] [phone] Jun, [facility] [address] [id number] [address] [place] [phone] Feb, [facility] [address] [id number] [address] [place] [phone] Feb, [facility] [address] [id number] [address] [place] [phone] Sep, [facility] [address] [id number] [address] [place] [phone] Sep, [facility] [address] [id number] [address] [place] [phone] Aug, [facility] [address] [id number] [address] [place] [phone] May, [facility] [address] [id number] [address] [place] [phone] Apr, [facility] [address] [id number] [address] [place] [phone] Feb, [facility] [address] [id number] [address] [place] [phone] Jan, [facility] [address] [id number] [address] [place] [phone] May, [facility] [address] [id number] [address] [place] [phone] March, [facility] [address] [id number] [address] [place] [phone] Jan, [facility] [address] [id number] [address] [place] [phone] Aug, IMMUNIZATIONS No Known Immunizations SOCIAL HISTORY Never Assessed REASON FOR VISIT PLAN OF CARE VITAL SIGNS MEDICATIONS Medication Instructions Dosage Frequency Start Date End Date Duration S shai PredniSONE 20 mg Orally Once a day 1 tablet 24h Nov, Nov, 05 days Active RESULTS No Results PROCEDURES No Known procedures INSTRUCTIONS MEDICATIONS ADMINISTERED No Known Medications MEDICAL (GENERAL) HISTORY Type Description Date Surgical History Tonsilectomy Surgical History 1984
--- OUTSIDE RECORDS SUMMARY | 2020-01-26 05:11 | XMS REPORT ---
Author Author Keyana SEGURA [facility] Address [address] [place] [address] Care Team Providers Care Coder Name Role Phone LUIS SEGURA Unavailable PROBLEMS Type Condition ICD9-CM Code CRI12-YD Code Onset Dates Condition S tatus SNOMED Code Problem Postnasal drip 784.91 Active 99663 007 Problem Unspecified diseases of conjunctiva due to viruses 077.99 Active 46108388 Problem Other diseases of nasal cavity and sinuses 478.19 Active 996324188 Problem Unspecified disorder of the teeth and supporting structure s 525.9 Active 615323912 Problem Dizziness and giddiness 780.4 Active 964174678 Problem Unspecified conjunctivitis 372.30 Act gato 8516120 Problem Aggressive periodontitis, 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 80170496 ALLERGIES Substance Reaction Event Type Date Status Sulfamethoxazole-Trimethoprim Unknown Drug Allergy March, 201 8 Active ENCOUNTERS Encounter Location Date Diagnosis [place] [address] [place] [id number] [address] [place] [address] Apr, [place] [address] [place] [id number] [address] [place] [address] March, Bronchospasm, acute J98.01 [place] [address] [place] [id number] [address] [place] [address] March, Cough present for greater th an 3 weeks R05 [place] [address] [place] [id number] [address] [place] [address] Dec, [place] [address] [place] [id number] [address] [place] [address] Nov, Influenza-like illness R69 [place] [address] [place] [id number] [address] [place] [address] 16 Nicholas, 2018 Viral upper respiratory trac t infection J06.9 and Laryngitis J04.0 [facility] [address] [facility] [id number] [address] [place] [address] Aug, [facility] [address] [facility] [id number] [address] [place] [address] Aug, Rash R21 and Jaw pain R68.84 [facility] [address] [facility] [id number] [address] [place] [address] March, [facility] [address] [facility] [id number] [address] [place] [address] Aug, Dysuria R30.0 and Acute righ t-sided low back pain without sciatica M54.5 [facility] [address] [facility] [id number] [address] [place] [address] Jul, Bronchitis J40 [facility] [address] [facility] [id number] [address] [place] [phone] Jan, [facility] [address] [facility] [id number] [address] [place] [phone] March, [facility] [address] [facility] [id number] [address] [place] [address] Feb, [facility] [address] [facility] [id number] [address] [place] [address] Feb, [facility] [address] [facility] [id number] [address] [place] [phone] Dec, [facility] [address] [facility] [id number] [address] [place] [phone] Dec, [facility] [address] [facility] [id number] [address] [place] [phone] Sep, [facility] [address] [facility] [id number] [address] [place] [phone] Sep, [facility] [address] [facility] [id number] [address] [place] [phone] Jun, [facility] [address] [id number] [address] [place] [id number] Jun, [facility] [address] [id number] [address] [place] [phone] Feb, [facility] [address] [id number] [address] [place] [id number] Feb, [facility] [address] [id number] [address] [place] [phone] Sep, [facility] [address] [id number] [address] [place] [phone] Sep, [facility] [address] [id number] [address] [place] [phone] Aug, [facility] [address] [id number] [address] [place] [id number] May, [facility] [address] [id number] [address] [place] [phone] Apr, [facility] [address] [id number] [address] [place] [phone] Feb, [facility] [address] [id number] [address] [place] [phone] Jan, [facility] [address] [id number] [address] [place] [phone] May, [facility] [address] [id number] [address] [place] [phone] March, [facility] [address] [id number] [address] [place] [phone] Jan, [facility] [address] [id number] [address] [place] [phone] Aug, IMMUNIZATIONS No Known Immunizations SOCIAL HISTORY Never Assessed REASON FOR VISIT Cough x2 months PLAN OF CARE VITAL SIGNS Height 64 in 2018-04-09 Heart Rate 88 bpm 2018-04-09 Respiratory Rate 12 2018-04-09 Oximetry 94 % 2018-04-09 Blood pressure systolic 140 mmHg 2018-04-09 Blood pressure diastolic 90 mmHg 2018-04-09 MEDICATIONS Medication Instructions Dosage Frequency Start Date End Date Duration S hectorus Cetirizine-Pseudoephedrine ER 5-120 MG Orally Twice a day 1 tablet 12 h 30 days Active Azithromycin 250 MG Orally Once a day 2 tablets on the fi rst day, then 1 tablet daily for 4 days 24h March, March, 5 day(s) Active Aciphex 20 mg 1 tablet by Oral route 1 time per day 2014 90 Active RESULTS No Results PROCEDURES No Known procedures INSTRUCTIONS MEDICATIONS ADMINISTERED No Known Medications MEDICAL (GENERAL) HISTORY Type Description Date Surgical History Tonsilectomy Surgical History 1989, 1984
--- OUTSIDE RECORDS SUMMARY | 2020-01-26 05:11 | XMS REPORT ---
Author Author Keyana DICKEY Organization [facility] Address [address] [place] [address] Care Team Providers Care Log Scaler Name Role Phone ERICKA DICKEY Unavailable PROBLEMS Type Condition ICD9-CM Code VSU50-KM Code Onset Dates Condition S tatus SNOMED Code Problem Postnasal drip 784.91 Active 95612 007 Problem Unspecified diseases of conjunctiva due to viruses 077.99 Active 56845952 Problem Other diseases of nasal cavity and sinuses 478.19 Active 422459071 Problem Unspecified disorder of the teeth and supporting structure s 525.9 Active 953412989 Problem Dizziness and giddiness 780.4 Active 292518532 Problem Unspecified conjunctivitis 372.30 Act gato 8272810 Problem Aggressive periodontitis, 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 10413225 ALLERGIES No Information ENCOUNTERS Encounter Location Date Diagnosis [place] [address] [id number] Apr, [place] [address] [address] March, Bronchospasm, acute J98.01 [place] [address] [address] March, Cough present for greater th an 3 weeks R05 [place] [address] [address] [place] [id number] [place] [phone] Dec, [place] [address] [address] Nov, Influenza-like illness R69 [place] [address] [address] [place] [id number] [address] [place] [phone] Nov, Viral upper respiratory trac t infection J06.9 and Laryngitis J04.0 [facility] [address] [id number] [address] [place] [phone] Aug, [facility] [address] [id number] [address] [place] [phone] Aug, Rash R21 and Jaw pain R68.84 [facility] [address] [id number] [address] [place] [id number] March, [facility] [address] [id number] [address] [place] [phone] Aug, Dysuria R30.0 and Acute righ t-sided low back pain without sciatica M54.5 [facility] [address] [id number] [address] [place] [phone] Jul, Bronchitis J40 [facility] [address] [id number] [address] [place] [phone] Jan, [facility] [address] [id number] [address] [place] [phone] March, [facility] [address] [id number] [address] [place] [phone] Feb, [facility] [address] [id number] [address] [place] [phone] Feb, [facility] [address] [id number] [address] [place] [phone] Dec, [facility] [address] [id number] [address] [place] [phone] Dec, [facility] [address] [id number] [address] [place] [phone] Sep, [facility] [address] [id number] [address] [place] [phone] Sep, [facility] [address] [id number] [address] [place] [phone] Jun, [facility] [address] [id number] [address] [place] [phone] Jun, [facility] [address] [id number] [address] [place] [phone] Feb, [facility] [address] [id number] [address] [place] [phone] Feb, [facility] [address] [id number] [address] [place] [phone] Sep, [facility] [address] [id number] [address] [place] [phone] Sep, [facility] [address] [id number] [address] [place] [phone] Aug, [facility] [address] [id number] [address] [place] [phone] May, [facility] [address] [id number] [address] [place] [phone] Apr, [facility] [address] [id number] [address] [place] [phone] Feb, [facility] [address] [id number] [address] [place] [phone] Jan, [facility] [address] [id number] [address] [place] [phone] May, [facility] [address] [id number] [address] [place] [id number] March, [facility] [address] [id number] [address] [place] [phone] Jan, [facility] [address] [id number] [address] [place] [phone] Aug, IMMUNIZATIONS No Known Immunizations SOCIAL HISTORY Never Assessed REASON FOR VISIT zyrte-d PLAN OF CARE VITAL SIGNS MEDICATIONS Medication Instructions Dosage Frequency Start Date End Date Duration S tatus Cetirizine-Pseudoephedrine ER 5-120 MG Orally Twice a day 1 tablet 12 h 30 days Active RESULTS No Results PROCEDURES No Known procedures INSTRUCTIONS MEDICATIONS ADMINISTERED No Known Medications MEDICAL (GENERAL) HISTORY Type Description Date Surgical History Tonsilectomy Surgical History 1984
== END 2020-01-22 18:40 | disposition home or self-care (01) ==
LOC: EDUNIT# 08:06 → EEVIPCON 08:07 → ER 08:07 → 4TH 10:31
PROVIDERS: ADMIT Family Medicine; ATTEND Family Medicine
DX: G81.94 Hemiplegia, unspecified affecting left nondominant side (principal); I63.89 Other cerebral infarction; I16.0 Hypertensive urgency; Z88.0 Allergy status to penicillin; Z79.82 Long term (current) use of aspirin; Z79.899 Other long term (current) drug therapy; Z82.3 Family history of stroke
CPT/HCPCS: 36415; 70450; 70496; 70498; 71045; 80053; 81000; 84484; 85025; 85379; 85610; 85730; 93005; 93041; 93306; G0378